=== PATIENT | female | born 2000 | race American Indian/Alaskan Native ===

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

== ENCOUNTER 2019-10-05 14:53 | Inpatient (IN) | payer MEDICAID, SELFPAY ==
[2019-10-05] MEDS ORDERED: Lactated Ringers 1,000 ML IV SCH ×2 (16:15→17:45)
[2019-10-05 17:01] LABS: ANION GAP 12.4 mEq/L (7-13); CHLORIDE,CL 103 mmol/L (98-107); SODIUM,NA 137 mmol/L (136-145)
[2019-10-05] MEDS: Lactated Ringers 1,000 ML IV SCH ×2 (17:13→23:41)
[2019-10-05] MEDS ORDERED: Sodium Chloride 0.9% 10 ML Syringe FLUSH PRN ×2 (17:41→17:45)
[2019-10-05] MEDS ORDERED: Simethicone 80 MG Tab.Chew PO PRN (17:45)
[2019-10-05] MEDS ORDERED: Benzocaine/Menthol 20%-0.5% Spray 56 GM Canister TOP PRN (17:45)
[2019-10-05] MEDS ORDERED: Zolpidem 5 MG Tab PO PRN (17:45)
[2019-10-05] MEDS ORDERED: Tranexamic Acid 1,000 MG in Sodium Chloride 0.9% 100 ML IV PRN (17:45)
[2019-10-05] MEDS ORDERED: Oxytocin/Normal Saline 30 UNIT/500 ML BAG IV SCH (17:45)
[2019-10-05] MEDS ORDERED: Misoprostol 400 MCG (4 X 100 MCG TAB) RECTAL PRN (17:45)
[2019-10-05] MEDS ORDERED: Carboprost Tromethamine 250 MCG/1 ML Amp IM PRN (17:45)
[2019-10-05] MEDS ORDERED: Oxytocin 10 Units/1 ML SDV IM PRN (17:45)
--- NOTE | 2019-10-05 19:24 | HP ---
CHIEF COMPLAINT: "I am having bleeding." HISTORY OF PRESENT ILLNESS: Ms. Adler is a 19-year-old 2, para 0-0-1- 0, female at 38-6/7 weeks' gestation by a 13-5/7 weeks' ultrasound. She states that today after having intercourse, she had bleeding, and she has some cramping. She denies any nausea, vomiting, or diarrhea. No fever or chills. No hematochezia, hematemesis, or hematuria. No dysuria, frequency, or urgency with urination. No leg pain, leg edema, severe back pain, or abdominal pain. She is having increased force and frequency of contrations. She also had history of Trichomonas earlier in the and bacterial vaginosis. No other cancer, hypertension, heart disease, seizure disorder, thromboembolic disease noted in her history. PAST MEDICAL HISTORY: She has history of asthma and hepatitis C, which she did not know about. She denies any hypertension, diabetes, thromboembolic disease, thyroid disease, kidney disease, lung or other health issues. She has never had a blood transfusion. History of depression, iron deficiency anemia, vitamin D deficiency. FAMILY HISTORY: Positive for diabetes, heart disease, and hypertension. No cancer, thyroid disease, or thromboembolic disease. SOCIAL HISTORY: She smokes half pack of cigarettes a day. She denies any alcohol use or illicit drug use, but she does have a positive drug screen for THC on 04/10/2019 and on methamphetamine today. MEDICATIONS: vitamins. ALLERGIES: No known drug allergies. PAST SURGICAL HISTORY: None. OBSTETRICAL HISTORY: One spontaneous AB. REVIEW OF SYSTEMS: All pertinent positive and negative review of systems per HPI. All other systems reviewed were negative. A 10-point review of systems discussed with the patient. She has no other issues than what is in the HPI. PHYSICAL EXAMINATION: Vital Signs: Blood pressure 132/76, pulse 76, respirations 18, temperature 98.5. HEENT: Unremarkable. Neck: Supple without adenopathy. No thyromegaly. Lungs: Clear to auscultation. No wheezing, rhonchi, or rales noted. Cardiovascular: Regular rate and rhythm without murmurs. Abdomen: Soft, gravid, nontender. Fundal height 38 cm. heart tones 130s to 140s, reactive strip. Contractions every 3 to 5 minutes apart. Back: No CVA tenderness. Genitourinary: External genitalia within normals. No erythema, lesions, or discharge noted. Vagina, no erythema or lesions noted. She does have slight blood noted in the vaginal vault, but no active bleeding from the cervix. Cervix is 2 to 3 cm dilated, 70% effaced, minus 2 station, mid position. GC- chlamydia and wet mount obtained. Group B strep vaginal culture obtained. RPR - NR, HBsag- Neg, Rubella- Equivocal, Blood type O Positive, Ab screen- Neg ASSESSMENT: 1. A 38-6/7 weeks' intrauterine . 2. Early labor. 3. Vaginal bleeding most likely from intercourse with a dilated cervix. 4. Tobacco abuser. 5. History of methamphetamine positive drug screen. 6. History of positive Trichomonas and bacterial vaginosis in the which were treated. 7. Minimal care. PLAN: 1. The patient will be kept and then after midnight, 39 weeks gestation we will start Pitocin augmentation. 2. All questions answered. 3. Risks, benefits, complications, and side effects of augmentation of labor discussed with the patient. She understands these. 4. CBC, CMP, protein-creatinine ratio, urinalysis pending. 5. Group B strep vaginal culture pending. [facility] /[id number] MTDD
[2019-10-06] MEDS ORDERED: Ondansetron 4 MG/2 ML SDV IVPUSH PRN (00:33)
[2019-10-06] MEDS ORDERED: cefTRIAXone 2 GM in Sodium Chloride 0.9% 100 ML IV ONE (00:36)
--- NOTE | 2019-10-06 00:50 | PCM.PNLD ---
Labor Progress Note - VS & Meds Vital Signs: Last Vital Signs Temp 98.9 F 10/05/19 23:33 Pulse 78 10/06/19 00:18 Resp 18 10/06/19 00:18 BP 135/74 10/06/19 00:18 Pulse Ox Active Medications: Current Medications Acetaminophen (Tylenol) 650 mg PO Q4H PRN PRN Reason: Pain/Fever Acetaminophen (Tylenol) 650 mg PO Q6H PRN PRN Reason: mild pain or fever Benzocaine/Menthol (Dermoplast Pain Relief [place]) 0 gm TOP Q4H PRN PRN Reason: Perineal comfort measures Carboprost Tromethamine (Hemabate Ds) 250 mcg IM ASDIRECTED PRN PRN Reason: Excessive vaginal bleeding Docusate Sodium (Colace) 100 mg PO BID PRN PRN Reason: Constipation Lactated Ringer's (Ringers, Lactated) 1,000 mls @ 999 mls/hr IV ASDIRECTED [facility] Last Admin: 10/05/19 16:37 Dose: 999 mls/hr Lactated Ringer's (Ringers, Lactated) 1,000 mls @ 125 mls/hr IV ASDIRECTED [facility] Last Admin: 10/05/19 23:41 Dose: 125 mls/hr Lactated Ringer's (Ringers, Lactated) 1,000 mls @ 125 drops/hr IV ASDIRECTED [facility] Oxytocin/Sodium Chloride (Pitocin In Ns 30 Unit/500 Ml) 30 unit in 500 mls @ 2 mls/hr IV TITRATE [facility]; Protocol Last Admin: 10/06/19 00:18 Dose: 2 munits/min, 2 mls/hr Tranexamic Acid 1,000 mg/ (Sodium Chloride) 110 mls @ 660 mls/hr IV ONETIME PRN PRN Reason: Bleeding Ceftriaxone Sodium 2 gm/ (Sodium Chloride) 100 mls @ 200 mls/hr IV ONETIME ONE Stop: 10/06/19 01:05 Ibuprofen (Motrin) 800 mg PO Q8H PRN PRN Reason: Mild Pain or Fever Misoprostol (Cytotec) 800 mcg RECTAL ONETIME PRN PRN Reason: Hemorrhage Ondansetron HCl (Zofran) 4 mg IVPUSH Q4H PRN PRN Reason: Nausea/Vomiting Oxytocin (Pitocin) 10 unit IM ONETIME PRN PRN Reason: Bleeding Prenat Multivit/Tate/Iron/Folic Ac ( Plus Iron) 1 each PO DAILY KARSON Simethicone (Simethicone) 80 mg PO Q4H PRN PRN Reason: Gas Sodium Chloride (Saline Flush) 10 ml FLUSH ASDIRECTED PRN PRN Reason: Keep Vein Open Sodium Chloride (Saline Flush) 10 ml FLUSH ASDIRECTED PRN PRN Reason: Keep Vein Open Witch Zahraa (Medi-Pads) 1 each TOP Q4HR PRN PRN Reason: Perineal Comfort Measure Zolpidem Tartrate (Ambien) 5 mg PO BEDTIME PRN PRN Reason: Insomnia Last Admin: 10/05/19 20:55 Dose: 5 mg - Uterine Contractions Uterine Monitoring Mode: External [place], Palpation Contraction Frequency (min): 4 Contraction Duration (sec): 65-110 Contraction Intensity: Mild Uterine Resting Tone: Soft - Monitoring Monitor Mode: External Ultrasound Heart Rate (FHR) Baseline: 130 Heart Rate (FHR) Variability: Moderate (6-25 bmp) Accelerations: Absent (occasional aceleration noted.) Decelerations: None Strip Review: Category I - Vaginal Exam Dilation (cm): 3 Effacement (Percent): 80 Station: -2 Cervical Position: Midposition Sterile Vaginal Exam Performed By: Artemio Pimentel Vaginal Exam Comment: AROM with vaginal exam Thin meconium stained fluid - Labor Progress (Free Text) Labor Progress: Patient having contractions that have spread apartto every 4-5 minutes. Elevated liver enzymes with protein/creatine ratio. Urine with + Nitrites, Protein 100 and + bacteria and blood. Will start Ceftriaxone IV 2 grams now. Urine culture pending. 3 cm/80%/-2 AROM, Thin meconium stained fluid. Pitocin IV 2 mu/little traverse start then increase by 2 mu/min every 30 minutes. May have Nitrox/Intrathecal as needed.
[2019-10-06] MEDS ORDERED: fentaNYL 100 MCG/2 ML SDV ONE ×2 (02:13→06:12)
[2019-10-06] MEDS ORDERED: Sodium Bicarbonate 4.2% 2.5 MEQ/5 ML SDV ONE ×2 (02:13→06:12)
[2019-10-06] MEDS ORDERED: EPINEPHrine 1 MG/1 ML Amp ONE (02:13)
[2019-10-06] MEDS: Lactated Ringers 1,000 ML IV SCH ×2 (02:32→06:43)
--- NOTE | 2019-10-06 02:41 | PCM.SN ---
- Free Text/Narrative Note: Intrathecal. Sitting position, sterile prep and drape, 1% lidocaine with bicarb for skinwheal to L2 L3 interspace, introducer, 24 ga pencan x 1. Pos CSF neg heme neg parasthesia, 0.1 ml PF 1;1000 epi, 0.4 ml pf NS, 15 mcg pf sufenta, 35 mcg pf fentanyl, and 6 mg of 0.75% pf marcaine injected after CSF aspiration. Pt to L lateral position. Procedure time 0210 to 0240
--- NOTE | 2019-10-06 06:29 | PCM.SN ---
- Free Text/Narrative Note: Intrathecal. Sitting position, sterile prep and drape, 1% lidocaine with bicarb for skinwheal to L2 L3 interspace, introducer, 24 ga pencan x 1. Pos CSF neg heme neg parasthesia, 0.4 ml pf NS, 15 mcg pf sufenta, 35 mcg pf fentanyl, and 6 mg of 0.75% pf marcaine injected after CSF aspiration. Pt to L lateral position. Procedure time 0610 to 0640
--- NOTE | 2019-10-06 07:48 | PCM.DEL ---
L & D Note - General Info Date of Service: 10/06/19 (39 week IUP) Mother's Due Date: 10/13/19 - Delivery Note Labor: Augmented by ARM, Augmented by Oxytocin Delivery Outcome: Livebirth Delivery Method: Spontaneous Vaginal Delivery-Single Delivery Mode: Spontaneous Presentation: Left Occiput Anterior (RUFUS) Nuchal Cord: Present (Tight nuchal cord X1.), Reduced Anesthesia Type: Intrathecal Amniotic Fluid Description: Meconium Stained Episiotomy Type: Midline Laceration: None Suture type: Vicryl Suture size: 2-0 Placenta: Intact, Spontaneous Cord: 3 Vessels Estimated Blood Loss: 400 Resuscitation Needed: No [place]: Suctioned, Bulb Syringe, Stimulated, Warmed, [place] Used Provider: Artemio Pimentel Score 1 min: 7 Score 5 min: 9 Second Stage Interventions: Reports: Second Nurse Assessed Progress of Descent, Second Nurse Reviewed Contraction Pattern, Second Nurse Reviewed Heart Tones, Encouragement Given, Pushing Effectively, Pushing, Pulls Own Legs Back Delivery Comments (Free Text/Narrative):: , RUFUS, Viable male infant over a midline episiotomy Cord 3 vessel tightly around neck X 1. Placenta delivered by simple expression intact. Labia, Vagina and cervix inspected an intact. Mother and in good condition. Viable male weight- 7 lbs 10 oz Length- 19 3/4 inches. 's- 7 at 1 minute and 9 at 5 minutes. Induction Criteria - Induction Gestational Age >/= 39 wks: Yes Estimated Pelvis: Reports: Adequate Reassuring Monitoring Strip: Yes Absence of Tachy Systole: Yes - Augmentation Estimated Pelvis: Reports: Adequate Weight Estimated:: Reports: AGA Reassuring Monitoring Strip: Yes Absence of Tachy Systole: Yes - General Info Date of Service: 10/06/19 Functional Status: Reports: Pain Controlled, Tolerating Diet, Ambulating - Review of Systems General: Reports: No Symptoms HEENT: Reports: No Symptoms Pulmonary: Reports: No Symptoms Cardiovascular: Reports: No Symptoms Gastrointestinal: Reports: No Symptoms Genitourinary: Reports: No Symptoms Musculoskeletal: Reports: No Symptoms Skin: Reports: No Symptoms Neurological: Reports: No Symptoms Psychiatric: Reports: No Symptoms - Patient Data Vitals - Most Recent: Last Vital Signs Temp 98.9 F 10/06/19 04:00 Pulse 61 10/06/19 04:45 Resp 18 10/06/19 04:45 BP 117/70 10/06/19 04:45 Pulse Ox 97 10/06/19 02:39 Weight - Most Recent: 176 lb I&O - Last 24 Hours: Intake & Output 10/05/19 10/06/19 10/06/19 22:59 06:59 14:59 Intake Total 3100 Balance 3100 Lab Results Last 24 Hours: Laboratory Results - last 24 hr 10/05/19 10/05/19 10/05/19 Range/Units 15:05 15:05 15:05 WBC (5.0-10.0) 10^3/uL RBC (4.2-5.4) 10^6/uL Hgb (12.0-16.0) g/dL Hct (37.0-47.0) % MCV (80-100) fL MCH (27.0-34.0) pg MCHC (33.0-35.0) g/dL Plt Count (150-450) 10^3/uL Sodium (136-145) mmol/L Potassium (3.5-5.1) mmol/L Chloride (98-107) mmol/L Carbon Dioxide (21-32) mmol/L Anion Gap (7-13) mEq/L BUN (7-18) mg/dL Creatinine (0.55-1.02) mg/dL Est Cr Clr Drug Dosing mL/min Estimated GFR (MDRD) BUN/Creatinine Ratio (No establ ref range) Glucose (74-99) mg/dL Uric Acid (2.6-6.0) mg/dL Calcium (8.5-10.1) mg/dL Total Bilirubin (0.2-1.0) mg/dL AST (15-37) U/L ALT (14-59) U/L Alkaline Phosphatase (46-116) U/L Lactate Dehydrogenase (81-234) U/L Total Protein (6.4-8.2) g/dL Albumin (3.4-5.0) g/dL Globulin Albumin/Globulin Ratio Urine Color Alethea (YELLOW) Urine Appearance Cloudy (CLEAR) Urine pH 6.0 (5.0-9.0) Ur Specific [place] 1.020 (1.005-1.030) Urine Protein 100 H (NEGATIVE) Urine Glucose (UA) 100 H (NEGATIVE) Urine Ketones 15 H (NEGATIVE) Urine Occult Blood Large H (NEGATIVE) Urine Nitrite Positive H (NEGATIVE) Urine Bilirubin Large H (NEGATIVE) Urine Urobilinogen >=8.0 H (0.2-1.0) mg/dL Ur Leukocyte Esterase Negative (NEGATIVE) Urine RBC >100 H /HPF Urine WBC 0-5 (0-5/HPF) /HPF Ur Epithelial Cells Few (NOT SEEN) /HPF Amorphous Sediment Few (NOT SEEN) /HPF Urine Bacteria Few (0-FEW/HPF) /HPF Urine Mucus Few H (NOT SEEN) /LPF Ur Random Creatinine 436.69 (No establ ref range) mg/dL U Random Total Protein 169.6 H (0.0-11.9) mg/dL Protein/Creatinin Ratio 0.38 Urine Opiates Screen Negative (NEGATIVE) Ur Oxycodone Screen Negative (NEGATIVE) Urine Methadone Screen Negative (NEGATIVE) Ur Barbiturates Screen Negative (NEGATIVE) U Tricyclic Antidepress Negative (NEGATIVE) Ur Phencyclidine Scrn Negative (NEGATIVE) Ur Amphetamine Screen Positive H (NEGATIVE) U Methamphetamines Scrn Positive H (NEGATIVE) Urine MDMA Screen Negative (NEGATIVE) U Benzodiazepines Scrn Negative (NEGATIVE) Urine Cocaine Screen Negative (NEGATIVE) U Marijuana (THC) Screen Negative (NEGATIVE) Blood Type Gel Antibody Screen 10/05/19 10/05/19 10/05/19 Range/Units 16:34 16:34 16:34 WBC 6.5 (5.0-10.0) 10^3/uL RBC 4.53 (4.2-5.4) 10^6/uL Hgb 12.1 (12.0-16.0) g/dL Hct 36.6 L (37.0-47.0) % MCV 80.8 D (80-100) fL MCH 26.7 L (27.0-34.0) pg MCHC 33.1 (33.0-35.0) g/dL Plt Count 162 D (150-450) 10^3/uL Sodium 137 (136-145) mmol/L Potassium 4.4 (3.5-5.1) mmol/L Chloride 103 (98-107) mmol/L Carbon Dioxide 26 (21-32) mmol/L Anion Gap 12.4 (7-13) mEq/L BUN 12 (7-18) mg/dL Creatinine 0.80 (0.55-1.02) mg/dL Est Cr Clr Drug Dosing 84.65 mL/min Estimated GFR (MDRD) > 60 BUN/Creatinine Ratio 15.0 (No establ ref range) Glucose 85 (74-99) mg/dL Uric Acid 7.6 H (2.6-6.0) mg/dL Calcium 8.3 L (8.5-10.1) mg/dL Total Bilirubin 0.9 (0.2-1.0) mg/dL AST 117 H (15-37) U/L ALT 183 H (14-59) U/L Alkaline Phosphatase 236 H (46-116) U/L Lactate Dehydrogenase 132 (81-234) U/L Total Protein 6.7 (6.4-8.2) g/dL Albumin 2.3 L (3.4-5.0) g/dL Globulin 4.4 Albumin/Globulin Ratio 0.52 Urine Color (YELLOW) Urine Appearance (CLEAR) Urine pH (5.0-9.0) Ur Specific [place] (1.005-1.030) Urine Protein (NEGATIVE) Urine Glucose (UA) (NEGATIVE) Urine Ketones (NEGATIVE) Urine Occult Blood (NEGATIVE) Urine Nitrite (NEGATIVE) Urine Bilirubin (NEGATIVE) Urine Urobilinogen (0.2-1.0) mg/dL Ur Leukocyte Esterase (NEGATIVE) Urine RBC /HPF Urine WBC (0-5/HPF) /HPF Ur Epithelial Cells (NOT SEEN) /HPF Amorphous Sediment (NOT SEEN) /HPF Urine Bacteria (0-FEW/HPF) /HPF Urine Mucus (NOT SEEN) /LPF Ur Random Creatinine (No establ ref range) mg/dL U Random Total Protein (0.0-11.9) mg/dL Protein/Creatinin Ratio Urine Opiates Screen (NEGATIVE) Ur Oxycodone Screen (NEGATIVE) Urine Methadone Screen (NEGATIVE) Ur Barbiturates Screen (NEGATIVE) U Tricyclic Antidepress (NEGATIVE) Ur Phencyclidine Scrn (NEGATIVE) Ur Amphetamine Screen (NEGATIVE) U Methamphetamines Scrn (NEGATIVE) Urine MDMA Screen (NEGATIVE) U Benzodiazepines Scrn (NEGATIVE) Urine Cocaine Screen (NEGATIVE) U Marijuana (THC) Screen (NEGATIVE) Blood Type O POSITIVE Gel Antibody Screen Negative Gildardo Results Last 24 Hours: Microbiology 10/05/19 17:28 Wet Prep - Final Vagina Med Orders - Current: Current Medications Acetaminophen (Tylenol) 650 mg PO Q4H PRN PRN Reason: Pain/Fever Acetaminophen (Tylenol) 650 mg PO Q6H PRN PRN Reason: mild pain or fever Benzocaine/Menthol (Dermoplast Pain Relief [place]) 0 gm TOP Q4H PRN PRN Reason: Perineal comfort measures Carboprost Tromethamine (Hemabate Ds) 250 mcg IM ASDIRECTED PRN PRN Reason: Excessive vaginal bleeding Docusate Sodium (Colace) 100 mg PO BID PRN PRN Reason: Constipation Lactated Ringer's (Ringers, Lactated) 1,000 mls @ 999 mls/hr IV ASDIRECTED KARSON Last Admin: 10/05/19 16:37 Dose: 999 mls/hr Lactated Ringer's (Ringers, Lactated) 1,000 mls @ 125 mls/hr IV ASDIRECTED KARSON Last Admin: 10/06/19 06:43 Dose: 125 mls/hr Lactated Ringer's (Ringers, Lactated) 1,000 mls @ 125 drops/hr IV ASDIRECTED [facility] Oxytocin/Sodium Chloride (Pitocin In Ns 30 Unit/500 Ml) 30 unit in 500 mls @ 2 mls/hr IV TITRATE [facility]; Protocol Last Titration: 10/06/19 06:32 Dose: 0 munits/min, 0 mls/hr Tranexamic Acid 1,000 mg/ (Sodium Chloride) 110 mls @ 660 mls/hr IV ONETIME PRN PRN Reason: Bleeding Ibuprofen (Motrin) 800 mg PO Q8H PRN PRN Reason: Mild Pain or Fever Misoprostol (Cytotec) 800 mcg RECTAL ONETIME PRN PRN Reason: Hemorrhage Ondansetron HCl (Zofran) 4 mg IVPUSH Q4H PRN PRN Reason: Nausea/Vomiting Last Admin: 10/06/19 02:06 Dose: 4 mg Oxytocin (Pitocin) 10 unit IM ONETIME PRN PRN Reason: Bleeding Prenat Multivit/[place]/Iron/Folic Ac ( Plus Iron) 1 each PO DAILY [facility] Simethicone (Simethicone) 80 mg PO Q4H PRN PRN Reason: Gas Sodium Chloride (Saline Flush) 10 ml FLUSH ASDIRECTED PRN PRN Reason: Keep Vein Open Sodium Chloride (Saline Flush) 10 ml FLUSH ASDIRECTED PRN PRN Reason: Keep Vein Open Witherminia Cherryel (Medi-Pads) 1 each TOP Q4HR PRN PRN Reason: Perineal Comfort Measure Zolpidem Tartrate (Ambien) 5 mg PO BEDTIME PRN PRN Reason: Insomnia Last Admin: 10/05/19 20:55 Dose: 5 mg Discontinued Medications Epinephrine HCl (Adrenalin) Confirm Administered Dose 1 mg .ROUTE .STK-MED ONE Stop: 10/06/19 02:14 Last Admin: 10/06/19 05:48 Dose: Not Given Fentanyl (Sublimaze) Confirm Administered Dose 100 mcg .ROUTE .STK-MED ONE Stop: 10/06/19 02:14 Last Admin: 10/06/19 05:49 Dose: Not Given Fentanyl (Sublimaze) Confirm Administered Dose 100 mcg .ROUTE .STK-MED ONE Stop: 10/06/19 06:13 Ceftriaxone Sodium 2 gm/ (Sodium Chloride) 100 mls @ 200 mls/hr IV ONETIME ONE Stop: 10/06/19 01:05 Last Admin: 10/06/19 01:11 Dose: 200 mls/hr Sodium Bicarbonate (Sodium Bicarbonate 4.2%) Confirm Administered Dose 2.5 meq .ROUTE .STK-MED ONE Stop: 10/06/19 02:14 Last Admin: 10/06/19 05:48 Dose: Not Given Sodium Bicarbonate (Sodium Bicarbonate 4.2%) Confirm Administered Dose 2.5 meq .ROUTE .STK-MED ONE Stop: 10/06/19 06:13 Sufentanil Citrate (Sufenta) Confirm Administered Dose 50 mcg .ROUTE .STK-MED ONE Stop: 10/06/19 02:14 Last Admin: 10/06/19 05:49 Dose: Not Given Sufentanil Citrate (Sufenta) Confirm Administered Dose 50 mcg .ROUTE .STK-MED ONE Stop: 10/06/19 06:13 - Exam General: Alert, Oriented, Cooperative, No Acute Distress HEENT: Pupils Equal, Pupils Reactive Neck: Supple Lungs: Clear to Auscultation, Normal Respiratory Effort Cardiovascular: Regular Rate, Regular Rhythm, No Murmurs GI/Abdominal Exam: Normal Bowel Sounds, Non-Tender (Female) Exam: Normal External Exam, Normal Speculum Exam Back Exam: Normal Inspection, Full Range of Motion Extremities: Normal Inspection, Normal Range of Motion, Non-Tender, No Pedal Edema, Normal Capillary Refill Skin: Dry, Intact Neurological: No New Focal Deficit, Normal Gait, Normal Speech Psy/Mental Status: Alert, Normal Affect, Normal Mood - Problem List Review Problem List Initiated/Reviewed/Updated: Yes - My Orders Last 24 Hours: My Active Orders 10/05/19 15:05 CULTURE URINE [RM] Routine 10/05/19 15:15 OB Check [OM.PC] Click To Edit 10/05/19 16:15 Lactated Ringers [Ringers, Lactated] 1,000 ml IV ASDIRECTED Lactated Ringers [Ringers, Lactated] 1,000 ml IV ASDIRECTED 10/05/19 16:30 CULTURE GROUP B STREP [RM] Routine 10/05/19 17:28 CHLAMYDIA AND GONORRHEA BY TMA Routine 10/05/19 17:41 Patient Status [ADT] Routine Notify Provider Vital Signs OB [RC] ASDIRECTED Notify Provider [RC] PRN Notify Provider [RC] STAT Vital Signs [RC] PER UNIT ROUTINE Acetaminophen [Tylenol] 650 mg PO Q4H PRN Sodium Chloride 0.9% [Saline Flush] 10 ml FLUSH ASDIRECTED PRN Peripheral IV Insertion Adult [OM.PC] Urgent 10/05/19 17:43 Peripheral IV Care [RC] 06,14,10/05/19 17:45 Up ad Kiki [RC] ASDIRECTED Acetaminophen [Tylenol] 650 mg PO Q6H PRN Benzocaine/Menthol [Dermoplast Pain Relief [place]] See Dose Instructions TOP Q4H PRN Carboprost Tromethamine [Hemabate DS] 250 mcg IM ASDIRECTED PRN Docusate Sodium [Colace] 100 mg PO BID PRN Ibuprofen [Motrin] 800 mg PO Q8H PRN Lactated Ringers [Ringers, Lactated] 1,000 ml IV ASDIRECTED Oxytocin [Pitocin] 10 unit IM ONETIME PRN Oxytocin/Normal Saline [Pitocin in NS 30 UNIT/500 ML] 30 unit in 500 ml IV TITRATE Simethicone 80 mg PO Q4H PRN Sodium Chloride 0.9% [Saline Flush] 10 ml FLUSH ASDIRECTED PRN Tranexamic Acid [Cyklokapron] 1,000 mg Sodium Chloride 0.9% [Normal Saline] 100 ml IV ONETIME Zolpidem [Ambien] 5 mg PO BEDTIME PRN miSOPROStoL [Cytotec] 800 mcg RECTAL ONETIME PRN witch Zahraa [Medi-Pads] 1 each TOP Q4HR PRN Assess Lochia [WOMSER] Per Unit Routine Assess Uterine Involution [WOMSER] Per Unit Routine Breast Pump [WOMSER] Per Unit Routine Ice Therapy [OM.PC] Per Unit Routine Perineal Care [OM.PC] Per Unit Routine Saline Lock Insert [OM.PC] Urgent Sitz Bath [OM.PC] Per Unit Routine Resuscitation Status Routine 10/05/19 Breakfast Regular Diet [DIET] 10/05/19 Dinner Regular Diet [DIET] Regular Diet [DIET] 10/05/19 Lunch Regular Diet [DIET] 10/06/19 00:33 Ondansetron [Zofran] 4 mg IVPUSH Q4H PRN 10/06/19 01:18 OB Discontinue Nitrous Oxide [RC] ASDIRECTED 10/06/19 04:55 DC Chua Catheter [Urinary Catheter Removal] [RC] Per Unit Routine 10/06/19 05:00 Insert Urinary Catheter [OM.PC] Q24H 10/06/19 09:00 Vit with Ca/FA/Iron [ Plus Iron] 1 each PO DAILY 10/07/19 06:00 CBC W/O DIFF,HEMOGRAM [HEME] Routine
[2019-10-06] MEDS ORDERED: Measles, Mumps & Rubella Vaccine 0.5 ML SDV SUBCUT ONE (07:49)
[2019-10-06] MEDS: Docusate Sodium 100 MG Cap PO PRN ×2 (12:45→21:15)
[2019-10-06] MEDS: Ibuprofen 800 MG Tab PO PRN ×2 (12:45→21:15)
[2019-10-06] MEDS: Acetaminophen 325 MG Tab PO PRN ×3 (12:45→21:16)
[2019-10-06] MEDS ORDERED: fentaNYL 100 MCG/2 ML SDV ITHECAL ONE ×2 (15:37)
[2019-10-06] MEDS ORDERED: Sodium Chloride 0.9% 10 ML Syringe IV ONE ×2 (15:37)
[2019-10-06] MEDS ORDERED: Bupivacaine 0.75%/D5W 2 ML Amp ISPINAL ONE ×2 (15:37)
[2019-10-06] MEDS ORDERED: EPINEPHrine 1 MG/1 ML Amp IV ONE (15:37)
[2019-10-06] MEDS ORDERED: Sodium Bicarbonate 4.2% 2.5 MEQ/5 ML SDV IV ONE ×2 (15:37)
[2019-10-06] MEDS: Prenatal Multivitamin with Calcium/Folic Acid/Iron Tab PO SCH (16:59)
[2019-10-07] MEDS: Docusate Sodium 100 MG Cap PO PRN ×2 (08:43→20:26)
[2019-10-07] MEDS: Prenatal Multivitamin with Calcium/Folic Acid/Iron Tab PO SCH (08:43)
[2019-10-07] MEDS: Acetaminophen 325 MG Tab PO PRN ×2 (08:43→20:26)
[2019-10-07] MEDS: Ibuprofen 800 MG Tab PO PRN ×2 (08:43→20:28)
--- NOTE | 2019-10-07 10:11 | PCM.PNPP ---
- General Info Date of Service: 10/07/19 (PPD#1 S/P ) Functional Status: Reports: Pain Controlled, Tolerating Diet, Ambulating, Urinating - Review of Systems General: Reports: No Symptoms HEENT: Reports: No Symptoms Pulmonary: Reports: No Symptoms Cardiovascular: Reports: No Symptoms Gastrointestinal: Reports: No Symptoms Genitourinary: Reports: No Symptoms Musculoskeletal: Reports: No Symptoms Skin: Reports: No Symptoms Neurological: Reports: No Symptoms Psychiatric: Reports: No Symptoms - General Info Date of Service: 10/07/19 (PPD #1 S/P ) - Patient Data Vital Signs - Most Recent: Last Vital Signs Temp 98.4 F 10/07/19 09:38 Pulse 66 10/07/19 09:38 Resp 16 10/07/19 09:38 BP 104/73 10/07/19 09:38 Pulse Ox 100 10/07/19 09:38 Weight - Most Recent: 176 lb Lab Results - Last 24 Hours: Laboratory Results - last 24 hr 10/07/19 Range/Units 06:10 WBC 9.5 (5.0-10.0) 10^3/uL RBC 3.49 L (4.2-5.4) 10^6/uL Hgb 9.4 L D (12.0-16.0) g/dL Hct 28.7 L (37.0-47.0) % MCV 82.2 (80-100) fL MCH 26.9 L (27.0-34.0) pg MCHC 32.8 L (33.0-35.0) g/dL Plt Count 123 L (150-450) 10^3/uL Micro Results - Last 24 Hours: Microbiology 10/05/19 16:30 Group B Streptococcus Culture - Preliminary Vaginal/Rectal Med Orders - Current: Current Medications Acetaminophen (Tylenol) 650 mg PO Q4H PRN PRN Reason: Pain/Fever Last Admin: 10/07/19 08:43 Dose: 650 mg Acetaminophen (Tylenol) 650 mg PO Q6H PRN PRN Reason: mild pain or fever Last Admin: 10/06/19 12:45 Dose: 650 mg Benzocaine/Menthol (Dermoplast Pain Relief [place]) 0 gm TOP Q4H PRN PRN Reason: Perineal comfort measures Last Admin: 10/06/19 12:46 Dose: 1 spray Carboprost Tromethamine (Hemabate Ds) 250 mcg IM ASDIRECTED PRN PRN Reason: Excessive vaginal bleeding Docusate Sodium (Colace) 100 mg PO BID PRN PRN Reason: Constipation Last Admin: 10/07/19 08:43 Dose: 100 mg Ferrous Sulfate (Ferrous Sulfate) 325 mg PO TIDMEALS KARSON Lactated Ringer's (Ringers, Lactated) 1,000 mls @ 999 mls/hr IV ASDIRECTED KARSON Last Admin: 10/05/19 16:37 Dose: 999 mls/hr Lactated Ringer's (Ringers, Lactated) 1,000 mls @ 125 mls/hr IV ASDIRECTED KARSON Last Admin: 10/06/19 06:43 Dose: 125 mls/hr Lactated Ringer's (Ringers, Lactated) 1,000 mls @ 125 drops/hr IV ASDIRECTED KARSON Oxytocin/Sodium Chloride (Pitocin In Ns 30 Unit/500 Ml) 30 unit in 500 mls @ 2 mls/hr IV TITRATE [facility]; Protocol Last Titration: 10/06/19 10:53 Dose: 0 mls/hr Tranexamic Acid 1,000 mg/ (Sodium Chloride) 110 mls @ 660 mls/hr IV ONETIME PRN PRN Reason: Bleeding Ibuprofen (Motrin) 800 mg PO Q8H PRN PRN Reason: Mild Pain or Fever Last Admin: 10/07/19 08:43 Dose: 800 mg Misoprostol (Cytotec) 800 mcg RECTAL ONETIME PRN PRN Reason: Hemorrhage Ondansetron HCl (Zofran) 4 mg IVPUSH Q4H PRN PRN Reason: Nausea/Vomiting Last Admin: 10/06/19 02:06 Dose: 4 mg Oxytocin (Pitocin) 10 unit IM ONETIME PRN PRN Reason: Bleeding Prenat Multivit/[employer]/Iron/Folic Ac ( Plus Iron) 1 each PO DAILY KARSON Last Admin: 10/07/19 08:43 Dose: 1 each Simethicone (Simethicone) 80 mg PO Q4H PRN PRN Reason: Gas Sodium Chloride (Saline Flush) 10 ml FLUSH ASDIRECTED PRN PRN Reason: Keep Vein Open Sodium Chloride (Saline Flush) 10 ml FLUSH ASDIRECTED PRN PRN Reason: Keep Vein Open Witch Zahraa (Medi-Pads) 1 each TOP Q4HR PRN PRN Reason: Perineal Comfort Measure Zolpidem Tartrate (Ambien) 5 mg PO BEDTIME PRN PRN Reason: Insomnia Last Admin: 10/05/19 20:55 Dose: 5 mg Discontinued Medications Epinephrine HCl (Adrenalin) Confirm Administered Dose 1 mg .ROUTE .STK-MED ONE Stop: 10/06/19 02:14 Last Admin: 10/06/19 05:48 Dose: Not Given Fentanyl (Sublimaze) Confirm Administered Dose 100 mcg .ROUTE .STK-MED ONE Stop: 10/06/19 02:14 Last Admin: 10/06/19 05:49 Dose: Not Given Fentanyl (Sublimaze) Confirm Administered Dose 100 mcg .ROUTE .STK-MED ONE Stop: 10/06/19 06:13 Last Admin: 10/06/19 08:37 Dose: Not Given Ceftriaxone Sodium 2 gm/ (Sodium Chloride) 100 mls @ 200 mls/hr IV ONETIME ONE Stop: 10/06/19 01:05 Last Admin: 10/06/19 01:11 Dose: 200 mls/hr Measles/Mumps/Rubella Vaccine Live (M-M-R Ii Vaccine) 0.5 ml SUBCUT .ONCE ONE Stop: 10/06/19 07:50 Last Admin: 10/06/19 16:59 Dose: 0.5 ml Sodium Bicarbonate (Sodium Bicarbonate 4.2%) Confirm Administered Dose 2.5 meq .ROUTE .STK-MED ONE Stop: 10/06/19 02:14 Last Admin: 10/06/19 05:48 Dose: Not Given Sodium Bicarbonate (Sodium Bicarbonate 4.2%) Confirm Administered Dose 2.5 meq .ROUTE .STK-MED ONE Stop: 10/06/19 06:13 Last Admin: 10/06/19 08:36 Dose: Not Given Sufentanil Citrate (Sufenta) Confirm Administered Dose 50 mcg .ROUTE .STK-MED ONE Stop: 10/06/19 02:14 Last Admin: 10/06/19 05:49 Dose: Not Given Sufentanil Citrate (Sufenta) Confirm Administered Dose 50 mcg .ROUTE .STK-MED ONE Stop: 10/06/19 06:13 Last Admin: 10/06/19 08:37 Dose: Not Given - Interaction Disposition, : [place] in Room with Family Infant Interaction: Holding Feeding: Bottle Fed Infant Support Person: Significant Other - Recovery Exam Fundal Tone: Firm Fundal Level: 1 Fingerbreadths Below Umbilicus Fundal Placement: Midline Lochia Amount: Small Lochia Color: Rubra/Red Perineum Description: Intact, Minimal Bruising/Swelling Episiotomy/Laceration: Approximated Bladder Status: Voiding - Exam General: Alert, Oriented, Cooperative, No Acute Distress HEENT: Pupils Equal, Pupils Reactive, EOMI, Mucous Membr. Moist/[place] Neck: Supple Lungs: Clear to Auscultation, Normal Respiratory Effort Cardiovascular: Regular Rate, Regular Rhythm, No Murmurs GI/Abdominal Exam: Normal Bowel Sounds, Soft, Non-Tender, No Organomegaly, No Distention Extremities: Normal Inspection, Normal Range of Motion, Non-Tender, No Pedal Edema Skin: Warm, Dry, Intact Wound/Incisions: Healing Well Neurological: No New Focal Deficit Psy/Mental Status: Alert, Normal Affect, Normal Mood - Problem List Review Problem List Initiated/Reviewed/Updated: Yes - My Orders Last 24 Hours: My Active Orders 10/07/19 12:00 Ferrous Sulfate 325 mg PO TIDMEALS - Assessment Assessment:: PPD # 1 S/P Doing well. + Group B strep vaginal culture U/A- Culture pending + Methamphetamine/Amphetamine in drug screen Acute Anemia secondary to blood loss. - Plan Plan:: studio set up worker to be involved with discharge planning. Discharge planning for tomorrow. Follow-up with Brooke Burton at 6 week check up Will treat for UTI as soon as culture returns. Increase fluids. All questions answered. FeSO4 1 tablet three times a day.
[2019-10-07] MEDS: Ferrous Sulfate 325 MG Tab PO SCH ×2 (13:05→18:24)
--- NOTE | 2019-10-08 03:13 | PCM.PNPP ---
- General Info Date of Service: 10/08/19 (PPD # 2 S/ P ) Functional Status: Reports: Pain Controlled, Tolerating Diet, Ambulating, Urinating - Review of Systems General: Reports: No Symptoms HEENT: Reports: No Symptoms Pulmonary: Reports: No Symptoms Cardiovascular: Reports: No Symptoms Gastrointestinal: Reports: No Symptoms Genitourinary: Reports: No Symptoms Musculoskeletal: Reports: No Symptoms Skin: Reports: No Symptoms Neurological: Reports: No Symptoms Psychiatric: Reports: No Symptoms - General Info Date of Service: 10/08/19 (PPD # 1 S/P ) - Patient Data Vital Signs - Most Recent: Last Vital Signs Temp 98.4 F 10/07/19 09:38 Pulse 66 10/07/19 09:38 Resp 16 10/07/19 09:38 BP 104/73 10/07/19 09:38 Pulse Ox 100 10/07/19 09:38 Weight - Most Recent: 176 lb Lab Results - Last 24 Hours: Laboratory Results - last 24 hr 10/07/19 Range/Units 06:10 WBC 9.5 (5.0-10.0) 10^3/uL RBC 3.49 L (4.2-5.4) 10^6/uL Hgb 9.4 L D (12.0-16.0) g/dL Hct 28.7 L (37.0-47.0) % MCV 82.2 (80-100) fL MCH 26.9 L (27.0-34.0) pg MCHC 32.8 L (33.0-35.0) g/dL Plt Count 123 L (150-450) 10^3/uL Micro Results - Last 24 Hours: Microbiology 10/05/19 15:05 Urine Culture - Preliminary Urine, Voided 10/05/19 16:30 Group B Streptococcus Culture - Preliminary Vaginal/Rectal Med Orders - Current: Current Medications Acetaminophen (Tylenol) 650 mg PO Q4H PRN PRN Reason: Pain/Fever Last Admin: 10/07/19 08:43 Dose: 650 mg Acetaminophen (Tylenol) 650 mg PO Q6H PRN PRN Reason: mild pain or fever Last Admin: 10/07/19 20:26 Dose: 650 mg Benzocaine/Menthol (Dermoplast Pain Relief Mason) 0 gm TOP Q4H PRN PRN Reason: Perineal comfort measures Last Admin: 10/06/19 12:46 Dose: 1 spray Carboprost Tromethamine (Hemabate Ds) 250 mcg IM ASDIRECTED PRN PRN Reason: Excessive vaginal bleeding Docusate Sodium (Colace) 100 mg PO BID PRN PRN Reason: Constipation Last Admin: 10/07/19 20:26 Dose: 100 mg Ferrous Sulfate (Ferrous Sulfate) 325 mg PO TIDMEALS [facility] Last Admin: 10/07/19 18:24 Dose: 325 mg Lactated Ringer's (Ringers, Lactated) 1,000 mls @ 999 mls/hr IV ASDIRECTED [facility] Last Admin: 10/05/19 16:37 Dose: 999 mls/hr Lactated Ringer's (Ringers, Lactated) 1,000 mls @ 125 mls/hr IV ASDIRECTED [facility] Last Admin: 10/06/19 06:43 Dose: 125 mls/hr Lactated Ringer's (Ringers, Lactated) 1,000 mls @ 125 drops/hr IV ASDIRECTED [facility] Oxytocin/Sodium Chloride (Pitocin In Ns 30 Unit/500 Ml) 30 unit in 500 mls @ 2 mls/hr IV TITRATE [facility]; Protocol Last Titration: 10/06/19 10:53 Dose: 0 mls/hr Tranexamic Acid 1,000 mg/ (Sodium Chloride) 110 mls @ 660 mls/hr IV ONETIME PRN PRN Reason: Bleeding Ibuprofen (Motrin) 800 mg PO Q8H PRN PRN Reason: Mild Pain or Fever Last Admin: 10/07/19 20:28 Dose: 800 mg Misoprostol (Cytotec) 800 mcg RECTAL ONETIME PRN PRN Reason: Hemorrhage Ondansetron HCl (Zofran) 4 mg IVPUSH Q4H PRN PRN Reason: Nausea/Vomiting Last Admin: 10/06/19 02:06 Dose: 4 mg Oxytocin (Pitocin) 10 unit IM ONETIME PRN PRN Reason: Bleeding Prenat Multivit/Electronic Tester/Iron/Folic Ac ( Plus Iron) 1 each PO DAILY [facility] Last Admin: 10/07/19 08:43 Dose: 1 each Simethicone (Simethicone) 80 mg PO Q4H PRN PRN Reason: Gas Sodium Chloride (Saline Flush) 10 ml FLUSH ASDIRECTED PRN PRN Reason: Keep Vein Open Sodium Chloride (Saline Flush) 10 ml FLUSH ASDIRECTED PRN PRN Reason: Keep Vein Open Witch Zahraa (Medi-Pads) 1 each TOP Q4HR PRN PRN Reason: Perineal Comfort Measure Zolpidem Tartrate (Ambien) 5 mg PO BEDTIME PRN PRN Reason: Insomnia Last Admin: 10/05/19 20:55 Dose: 5 mg Discontinued Medications Epinephrine HCl (Adrenalin) Confirm Administered Dose 1 mg .ROUTE .STK-MED ONE Stop: 10/06/19 02:14 Last Admin: 10/06/19 05:48 Dose: Not Given Fentanyl (Sublimaze) Confirm Administered Dose 100 mcg .ROUTE .STK-MED ONE Stop: 10/06/19 02:14 Last Admin: 10/06/19 05:49 Dose: Not Given Fentanyl (Sublimaze) Confirm Administered Dose 100 mcg .ROUTE .STK-MED ONE Stop: 10/06/19 06:13 Last Admin: 10/06/19 08:37 Dose: Not Given Ceftriaxone Sodium 2 gm/ (Sodium Chloride) 100 mls @ 200 mls/hr IV ONETIME ONE Stop: 10/06/19 01:05 Last Admin: 10/06/19 01:11 Dose: 200 mls/hr Measles/Mumps/Rubella Vaccine Live (M-M-R Ii Vaccine) 0.5 ml SUBCUT .ONCE ONE Stop: 10/06/19 07:50 Last Admin: 10/06/19 16:59 Dose: 0.5 ml Sodium Bicarbonate (Sodium Bicarbonate 4.2%) Confirm Administered Dose 2.5 meq .ROUTE .STK-MED ONE Stop: 10/06/19 02:14 Last Admin: 10/06/19 05:48 Dose: Not Given Sodium Bicarbonate (Sodium Bicarbonate 4.2%) Confirm Administered Dose 2.5 meq .ROUTE .STK-MED ONE Stop: 10/06/19 06:13 Last Admin: 10/06/19 08:36 Dose: Not Given Sufentanil Citrate (Sufenta) Confirm Administered Dose 50 mcg .ROUTE .STK-MED ONE Stop: 10/06/19 02:14 Last Admin: 10/06/19 05:49 Dose: Not Given Sufentanil Citrate (Sufenta) Confirm Administered Dose 50 mcg .ROUTE .STK-MED ONE Stop: 10/06/19 06:13 Last Admin: 10/06/19 08:37 Dose: Not Given - Interaction Disposition, : in Room with Family Interaction: Holding Feeding: Bottle Fed Support Person: Significant Other - Recovery Exam Fundal Tone: Firm Fundal Level: At Umbilicus Fundal Placement: Midline Lochia Amount: Small Lochia Color: Rubra/Red Perineum Description: Intact, Minimal Bruising/Swelling Episiotomy/Laceration: Approximated Bladder Status: Voiding Urinary Elimination: Voided - Exam General: Alert, Oriented, Cooperative, No Acute Distress HEENT: Pupils Equal, Pupils Reactive, EOMI, Mucous Membr. Moist/[place] Neck: Supple Lungs: Clear to Auscultation, Normal Respiratory Effort Cardiovascular: Regular Rate, Regular Rhythm, No Murmurs GI/Abdominal Exam: Normal Bowel Sounds, Soft, Non-Tender, No Organomegaly Extremities: Normal Inspection, Normal Range of Motion, Non-Tender, No Pedal Edema Skin: Warm, Dry, Intact Wound/Incisions: Healing Well Neurological: No New Focal Deficit, Normal Gait, Normal Speech, Normal Tone Psy/Mental Status: Alert, Normal Affect, Normal Mood - Problem List Review Problem List Initiated/Reviewed/Updated: Yes - My Orders Last 24 Hours: My Active Orders 10/07/19 12:00 Ferrous Sulfate 325 mg PO TIDMEALS 10/08/19 05:11 CBC WITH AUTO DIFF [HEME] AM HEPATIC FUNCTION PANEL,HFP [CHEM] AM - Assessment Assessment:: PPD # 2 S/P Doing well. - Plan Plan:: Discharge planning for tomorrow.ocial worker to be in Follow-up with Brooke Burton at 6 week check up All questions answered. FeSO4 1 tablet three times a day. Vitamins 1 tablet daily Amoxicillin 500 mg TID po X 10 days.
[2019-10-08] MEDS ORDERED: Amoxicillin 500 MG Cap PO ONE (03:30)
--- NOTE | 2019-10-08 04:35 | DISCH ---
INDICATION FOR ADMISSION: Ms. Adler is a 19-year-old, 2, para 0-0-1-0 female who reported to Labor and Delivery at [facility] in [facility] at 38 and 6/7 weeks gestation which was consistent with a 13 and 5/7 week ultrasound. She was initially admitted because she was having some vaginal bleeding after intercourse with some increasing force and frequency of contractions. On admission, she was noted to be 3 cm dilated, 70% effaced, -2 station, mid position. She had minimal care and previous history of Trichomonas and bacterial vaginosis in , so urine drug screen, GC chlamydia and wet mount were obtained along with a group B strep vaginal culture since that had not been obtained yet in the . Since she was in early labor, we kept her and started some Pitocin augmentation at 39 weeks gestation. She tolerated her labor quite well. Once she got uncomfortable, intrathecal anesthesia was obtained. Also, artificial rupture of membranes occurred with some thin meconium-stained fluid noted. When she got to complete, she started pushing and she had a normal spontaneous vaginal delivery, RUFUS, of a viable male infant over a midline episiotomy. Episiotomy was accomplished because of the deep variable decelerations during 2nd stage labor. There was noted to be a 3- vessel cord tightly around the neck x1. This was delivered and reduced without difficulty. The placenta was then delivered by simple expression intact. The labia, vagina and cervix were inspected and intact. Mother and infant were in good condition. She had delivery of a viable male , weighing 7 pounds 10 ounces, 19-3/4 inches long with score of 7 at one minute, 9 at five minutes. The midline episiotomy was repaired with 2-0 Vicryl suture without difficulty. She recovered. She tolerated the rest of her hospital stay quite well. She was afebrile. Vital signs were stable. She tolerated her diet well and ambulated quite well. She had minimal lochia. She bottle fed her baby and she was discharged to home on day #2. LABORATORY AND DIAGNOSTIC STUDIES: 10/05/2019, WBC 6.5, hemoglobin 12.1, hematocrit 36.1, platelet count 162,000. CMP: Uric acid 7.6, calcium 8.3, AST 117, ALT 183, alkaline phosphatase 236. The rest was normal. Urinalysis had a large bilirubin, rbc's, positive nitrite, 100 of protein, bacteria. She had a protein-creatinine ratio of 0.38. Urine toxicology screen showed methamphetamine/amphetamine positive. Wet mount was negative. Urine culture showed group B strep positive. Vaginal and rectal group B strep cultures were positive. This was found out after delivery. 10/07/2019; WBC 9.5, hemoglobin 9.4, hematocrit 28.7, platelet count 123,000. 10/08/2019, CBC and liver functions pending. DISCHARGE INSTRUCTIONS: 1. Discharged to home. 2. Follow up with Dr. Peralta with infant within the next week. 3. Patient will follow up at [facility] in 6 weeks for care. 4. No douching, tampons, intercourse for 6 weeks. 5. Discharge instructions including activity, followup, medications, diet and wound care were discussed with the patient. She understands these and is willing to comply with these. 6. Ibuprofen 800 mg 1 tablet t.i.d. p.r.n. pain. 7. Ferrous sulfate 1 tablet t.i.d. 8. vitamin 1 tablet daily. 9. Amoxicillin 500 mg t.i.d. for 10 days. DISCHARGE DIAGNOSES: 1. 39-week intrauterine . 2. Early labor. 3. Hepatitis C positive. 4. Acute anemia secondary to blood loss. 5. Group B strep vaginal culture positive. 6. Urinary tract infection group B strep positive. 7. Artificial rupture of membranes. 8. Pitocin augmentation. 9. Normal spontaneous vaginal delivery of a viable male weighing 7 pounds 10 ounces, 19-3/4 inches long with score of 7 at one minute, 9 at five minutes. 10.Minimal care. 11.Methamphetamine, urine drug screen positive. 12.Nicotine abuse. 13.Elevated liver enzymes, AST and ALT. [facility] /[id number]
[2019-10-08 07:23] VITALS: BP 123/62; PULSE 81
[2019-10-08] MEDS: Ferrous Sulfate 325 MG Tab PO SCH ×2 (08:26→11:49)
[2019-10-08] MEDS: Docusate Sodium 100 MG Cap PO PRN (08:26)
[2019-10-08] MEDS: Prenatal Multivitamin with Calcium/Folic Acid/Iron Tab PO SCH (08:26)
[2019-10-08] MEDS: Ibuprofen 800 MG Tab PO PRN (08:26)
[2019-10-08] MEDS ORDERED: Amoxicillin 500 MG Cap PO SCH (09:00)
[2019-10-09 12:42] LABS: C.TRACHOMATIS BY TMA Negative (Negative); N.GONORRHOEAE BY TMA Negative (Negative)
== END 2019-10-08 15:38 | disposition home or self-care (01) | DRG 806 ==
LOC: DL.OBCHECK 14:53 → DL.OB 17:41 → OBSVTOIN 10-06 07:17
PROVIDERS: ADMIT Obstetrics & Gynecology; ATTEND Obstetrics & Gynecology
PROC: 10E0XZZ Delivery of Products of Conception, External Approach (ICD-10-PCS; principal; 2019-10-06)
PROC: 3E0R3BZ Introduction of Anesthetic Agent into Spinal Canal, Percutaneous Approach (ICD-10-PCS; 2019-10-06)
PROC: 10907ZC Drainage of Amniotic Fluid, Therapeutic from Products of Conception, Via Natural or Artificial Opening (ICD-10-PCS; 2019-10-06)
PROC: 0W8NXZZ Division of Female Perineum, External Approach (ICD-10-PCS; 2019-10-06)
DX: O99.824 Streptococcus B carrier state complicating childbirth (principal); D62 Acute posthemorrhagic anemia; Z37.0 Single live birth; O99.333 Smoking (tobacco) complicating pregnancy, third trimester; F17.210 Nicotine dependence, cigarettes, uncomplicated; O77.0 Labor and delivery complicated by meconium in amniotic fluid; O76 Abnormality in fetal heart rate and rhythm complicating labor and delivery; O99.03 Anemia complicating the puerperium; Z79.899 Other long term (current) drug therapy; Z3A.39 39 weeks gestation of pregnancy; O69.1XX0 Labor and delivery complicated by cord around neck, with compression, not applicable or unspecified; O75.3 Other infection during labor; R74.8 Abnormal levels of other serum enzymes
CPT/HCPCS: 01967; 36415; 51702; 59409; 80053; 80076; 80305-QW; 81001; 82570; 83615; 84156; 84550; 85025; 85027; 86850; 86900; 86901; 87077; 87081; 87086; 87088; 87186; 87210; 87491; 87591; 90471; 90707; A9270-GY; J0171; J0696; J2405; J2590; J3010; J7050; J7120

== ENCOUNTER 2020-03-19 20:10 | Emergency (ER) | payer MEDICAID ==
[2020-03-19] MEDS ORDERED: fentaNYL 100 MCG/2 ML SDV IVPUSH ONE (20:16)
[2020-03-19 20:25] VITALS: BP 109/74; PULSE 90
--- NOTE | 2020-03-19 20:47 | CR ---
PROCEDURE INFORMATION: Exam: XR Left Knee Exam date and time: 03/19/2020 8:39 PM Age: 19 years old Clinical indication: Injury or trauma; Fall; Initial encounter; Abrasion; Knee; Left; Additional info: Fall, injury) TECHNIQUE: Imaging protocol: XR Left knee. Views: 3 views. COMPARISON: No relevant prior studies available. FINDINGS: Bones/joints: Normal. Soft tissues: Normal. IMPRESSION: No acute findings.
[2020-03-19 20:56] LABS: ANION GAP 17.8 mEq/L (7-13); CHLORIDE,CL 108 mmol/L (98-107); SODIUM,NA 146 mmol/L (136-145)
--- NOTE | 2020-03-19 21:02 | CR ---
PROCEDURE INFORMATION: Exam: XR Left Ankle Exam date and time: 03/19/2020 8:22 PM Age: 19 years old Clinical indication: Injury or trauma; Fall; Initial encounter; Abrasion; Ankle; Left; Additional info: Fall, injury) TECHNIQUE: Imaging protocol: XR Left ankle. Views: 3 or more views. COMPARISON: No relevant prior studies available. FINDINGS: Bones/joints: The alignment of the joints is anatomic and the joint spaces are maintained. There is no evidence of acute fracture. Soft tissues: There is no soft tissue swelling or calcifications. IMPRESSION: No acute process is identified.
--- NOTE | 2020-03-19 21:02 | CR ---
PROCEDURE INFORMATION: Exam: XR Left Hip with Pelvis when Performed Exam date and time: 03/19/2020 8:25 PM Age: 19 years old Clinical indication: Injury or trauma; Fall; Initial encounter; Abrasion; Left; Pelvic region; Additional info: Fall, injury) TECHNIQUE: Imaging protocol: XR Left hip with pelvis when performed. Views: 2 or 3 views. COMPARISON: No relevant prior studies available. FINDINGS: Bones/joints: Unremarkable. No acute fracture. Soft tissues: Unremarkable. IMPRESSION: No acute findings.
--- NOTE | 2020-03-19 21:16 | CR ---
PROCEDURE INFORMATION: Exam: XR Ribs with PA Chest, 4 Views Exam date and time: 03/19/2020 8:37 PM Age: 19 years old Clinical indication: Injury or trauma; Fall; Initial encounter; Rib area, bilateral; Abrasion; Additional info: Fall, injury TECHNIQUE: Imaging protocol: XR bilateral ribs 4 views with PA chest. COMPARISON: No relevant prior studies available. FINDINGS: Lungs: Unremarkable. No consolidation. Pleural space: Unremarkable. No pleural effusion. No pneumothorax. Heart/Mediastinum: Unremarkable. No cardiomegaly. Bones/joints: The ribs are normal. Unremarkable. IMPRESSION: No acute findings.
--- NOTE | 2020-03-19 21:25 | EDM.PDOC ---
ED HPI GENERAL MEDICAL PROBLEM - General Chief Complaint: Lower Extremity Injury/Pain Stated Complaint: AMBULANCE Time Seen by Provider: 03/19/20 20:24 Source of Information: Reports: Patient, RN, RN Notes Reviewed History Limitations: Reports: Intoxication - History of Present Illness INITIAL COMMENTS - FREE TEXT/NARRATIVE: Patient presents to ER per [place] ambulance service with complaint of left ankle/knee/hip pain as well as left sided rib pain. 20 to 30 minutes prior to arrival patient was chasing her child and fell in a pothole. Patient states pain is severe. Crying upon arrival and hollering. Denies hitting her head or getting knocked out. Patient admits to alcohol use today. Patient denies pain anywhere else other than noted above. Denies taking meds on a regular basis other than as needed inhaler. Admits to history of asthma. Onset: Today, Sudden Left Lower Leg Pain Score (Numeric/FACES): 10 - Related Data Allergies Allergy/AdvReac Type Severity Reaction Status Date / Time No Known Allergies Allergy Verified 03/19/20 20:23 Home Meds: Home Meds Albuterol [Ventolin HFA] 03/19/20 [History] Past Medical History - Past Health History Medical/Surgical History: Denies Medical/Surgical History HEENT History: Reports: None Cardiovascular History: Reports: None Respiratory History: Reports: Asthma Gastrointestinal History: Reports: None Genitourinary History: Reports: STD, UTI, Recurrent Other Genitourinary History: g/c bacterial vaginitis, trichall in mar and april of 2019 [employer] History: Reports: Spontaneous Musculoskeletal History: Reports: None Neurological History: Reports: None Psychiatric History: Reports: Addiction Endocrine/Metabolic History: Reports: None Hematologic History: Reports: Anemia Immunologic History: Reports: None Oncologic (Cancer) History: Reports: None Dermatologic History: Reports: None - Infectious Disease History Infectious Disease History: Reports: Hepatitis C - Past Surgical History Head Surgeries/Procedures: Reports: None Social & Family History - Family History Family Medical History: Noncontributory - Tobacco Use Smoking Status *Q: Current Every Day Smoker Years of Tobacco use: 4 Packs/Tins Daily: 0.2 - Caffeine Use Caffeine Use: Reports: None - Alcohol Use Days Per Week of Alcohol Use: 1 Number of Drinks Per Day: 4 Total Drinks Per Week: 4 - Recreational Drug Use Recreational Drug Use: No - Living Situation & Occupation Living situation: Reports: with Family Occupation: Student Review of Systems - Review of Systems Review Of Systems: Comprehensive ROS is negative, except as noted in HPI. ED EXAM, GENERAL - Physical Exam Exam: See Below Exam Limited By: Intoxication General Appearance: Alert, WD/WN, Moderate Distress Eye Exam: Bilateral Eye: EOMI, Normal Inspection Ears: Normal External Exam, Hearing Grossly Normal Nose: Normal Inspection Throat/Mouth: Normal Inspection, Normal Lips, Normal Teeth, Normal Gums, Normal Oropharynx, Normal Voice, No Airway Compromise Head: Atraumatic, Normocephalic Neck: Normal Inspection, Supple, Non-Tender, Full Range of Motion Respiratory/Chest: No Respiratory Distress, Lungs Clear, Normal Breath Sounds, No Accessory Muscle Use, Other (Left-sided chest wall pain lateral) Cardiovascular: Normal Peripheral Pulses, Regular Rate, Rhythm, No Edema, No Gallop, No JVD, No Murmur, No Rub Peripheral Pulses: 2+: Radial (L), Radial (R) GI/Abdominal: Normal Bowel Sounds, Soft, Non-Tender, No Organomegaly, No Distention, No Abnormal Bruit, No Mass, Pelvis Stable, Other (Left hip/pelvic pain upon palpation) (Female) Exam: Deferred Rectal (Female) Exam: Deferred Back Exam: Normal Inspection, Full Range of Motion Extremities: Leg Pain (Left), Limited Range of Motion (Left knee, left ankle) Neurological: Alert, Oriented, CN II-XII Intact, Normal Cognition, Normal Gait, Normal Reflexes, No Motor/Sensory Deficits Psychiatric: Anxious, Tearful Skin Exam: Warm, Dry, Intact, Normal Color, No Rash Lymphatic: No Adenopathy Course - Vital Signs Last Recorded V/S: Last Vital Signs Temp 98.6 F 03/19/20 20:24 Pulse 90 03/19/20 20:24 Resp 19 03/19/20 20:24 BP 109/74 03/19/20 20:24 Pulse Ox - Orders/Labs/Meds Orders: Active Orders 24 hr Category Date Time Status DRUG SCREEN URINE BIORAD [URCHEM] Stat Lab 03/19/20 21:12 Received HCG QUALITATIVE,URINE [URCHEM] Stat Lab 03/19/20 21:12 Received UA RFX JEREMY AND CULT IF INDIC [URIN] Stat Lab 03/19/20 21:12 Received Labs: Laboratory Tests 03/19/20 03/19/20 Range/Units 20:28 20:28 WBC 6.4 (5.0-10.0) 10^3/uL RBC 5.05 (4.2-5.4) 10^6/uL Hgb 12.6 D (12.0-16.0) g/dL Hct 38.2 (37.0-47.0) % MCV 75.6 L D (80-100) fL MCH 25.0 L (27.0-34.0) pg MCHC 33.0 (33.0-35.0) g/dL Plt Count 301 D (150-450) 10^3/uL Neut % (Auto) 47.0 (42.2-75.2) % Lymph % (Auto) 40.9 (20.5-50.1) % [place] % (Auto) 8.6 H (2-8) % Eos % (Auto) 3.3 H (1.0-3.0) % Baso % (Auto) 0.2 (0.0-1.0) % Sodium 146 H (136-145) mmol/L Potassium 4.8 (3.5-5.1) mmol/L Chloride 108 H (98-107) mmol/L Carbon Dioxide 25 (21-32) mmol/L Anion Gap 17.8 H (7-13) mEq/L BUN 11 (7-18) mg/dL Creatinine 0.78 (0.55-1.02) mg/dL Est Cr Clr Drug Dosing TNP Estimated GFR (MDRD) > 60 BUN/Creatinine Ratio 14.1 (No establ ref range) Glucose 94 (74-99) mg/dL Calcium 9.0 (8.5-10.1) mg/dL Total Bilirubin 0.8 (0.2-1.0) mg/dL AST 33 (15-37) U/L ALT 54 (14-59) U/L Alkaline Phosphatase 108 (46-116) U/L Total Protein 8.3 H (6.4-8.2) g/dL Albumin 3.9 (3.4-5.0) g/dL Globulin 4.4 Albumin/Globulin Ratio 0.9 Ethyl Alcohol 170 (0) mg/dL Meds: Medications Discontinued Medications Generic Name Dose Route Start Last Admin Trade Name Freq PRN Reason Stop Dose Admin Fentanyl 50 mcg 08/26/20 20:16 03/19/20 20:31 Sublimaze IVPUSH 03/19/20 20:17 50 mcg ONETIME ONE Administration Departure - Departure Time of Disposition: 21:45 Disposition: Home, Self-Care 01 Condition: Fair Clinical Impression: Sprain of ankle, Sprain of knee, Sprain of hip - Discharge Information *PRESCRIPTION DRUG MONITORING PROGRAM REVIEWED*: No *COPY OF PRESCRIPTION DRUG MONITORING REPORT IN PATIENT CAMMY: No Instructions: How to Use Cold Therapy, [id number], Ankle Sprain, [id number], Knee Sprain, Adult, [id number], Muscle Strain, [id number], Elastic Bandage and RICE Therapy Forms: ED Department Discharge Additional Instructions: May use Tylenol and/or ibuprofen as directed for pain Elevate and ice the left ankle and knee as much as possible May use Azael wrap to the left knee and left ankle for compression until pain is improved If no improvement in 2 weeks follow-up with your primary care provider Sepsis Event Note (ED) - Evaluation Sepsis Screening Result: No Definite Risk - Focused Exam Vital Signs: Vital Signs Temp Pulse Resp BP 03/19/20 20:24 98.6 F 90 19 109/74 - My Orders Last 24 Hours: My Active Orders 03/19/20 21:12 DRUG SCREEN URINE BIORAD [URCHEM] Stat HCG QUALITATIVE,URINE [URCHEM] Stat UA RFX JEREMY AND CULT IF INDIC [URIN] Stat - Assessment/Plan Last 24 Hours: My Active Orders 03/19/20 21:12 DRUG SCREEN URINE BIORAD [URCHEM] Stat HCG QUALITATIVE,URINE [URCHEM] Stat UA RFX JEREMY AND CULT IF INDIC [URIN] Stat
== END 2020-03-19 21:36 | disposition home or self-care (01) ==
LOC: DL.ED 20:10
DX: S93.402A Sprain of unspecified ligament of left ankle, initial encounter (principal); S83.92XA Sprain of unspecified site of left knee, initial encounter; S73.102A Unspecified sprain of left hip, initial encounter; J45.909 Unspecified asthma, uncomplicated; F17.210 Nicotine dependence, cigarettes, uncomplicated; W17.2XXA Fall into hole, initial encounter
CPT/HCPCS: 36415; 71111; 73502; 73562; 73610; 80053; 80305; 80307; 81001; 81025; 85025; 87086; 87088; 87186; 96374; 99284; J3010

== ENCOUNTER 2021-01-09 15:28 | Inpatient (IN) | payer MEDICAID ==
[2021-01-09] MEDS ORDERED: Penicillin G Potassium 5 MILLUNITS in Sodium Chloride 0.9% 100 ML IV ONE (15:45)
[2021-01-09] MEDS ORDERED: Sodium Chloride 0.9% 10 ML Syringe FLUSH PRN (16:23)
[2021-01-09] MEDS ORDERED: Diphtheria,Pertussis(Acell),Tetanus Vaccine 0.5 ML Syringe IM ONE (16:23)
[2021-01-09] MEDS ORDERED: Carboprost Tromethamine 250 MCG/1 ML Amp IM PRN (16:23)
[2021-01-09] MEDS ORDERED: Docusate Sodium 100 MG Cap PO PRN (16:23)
[2021-01-09] MEDS ORDERED: Acetaminophen 325 MG Tab PO PRN (16:23)
[2021-01-09] MEDS ORDERED: Benzocaine/Menthol 20%-0.5% Spray 78 GM Cannister TOP PRN (16:23)
[2021-01-09] MEDS ORDERED: Oxytocin 10 Units/1 ML SDV IM PRN (16:23)
[2021-01-09] MEDS ORDERED: Misoprostol 400 MCG (4 X 100 MCG TAB) RECTAL PRN (16:23)
[2021-01-09] MEDS ORDERED: Measles, Mumps & Rubella Vaccine 0.5 ML SDV SUBCUT ONE (16:23)
[2021-01-09] MEDS ORDERED: Zolpidem 5 MG Tab PO PRN (16:23)
[2021-01-09] MEDS ORDERED: Simethicone 80 MG Tab.Chew PO PRN (16:23)
[2021-01-09] MEDS ORDERED: Tranexamic Acid 1,000 MG in Sodium Chloride 0.9% 100 ML IV PRN (16:23)
--- NOTE | 2021-01-09 16:39 | PCM.DEL ---
Vacuum Extractor Progress Note - Alternative Labor Strategies Considered Alternative Labor Strategies Considered:: Reports: Yes Strategies Considered:: Reports: Contraction Intensity Adequate, Position Changes Used to Facilitate Rotation & Descent, Empty Bladder, Rest Indications Considered:: Reports: Yes Indications:: Reports: Suspicion of Immediate or Potential Compromise Time Out:: Reports: Yes - Patient Prepared Patient Prepared:: Reports: Yes Informed Consent:: Reports: Verbal Risks: Reports: Yes Risks Include:: Reports: Laceration, Shoulder Dystocia, Maternal Injury, Other Anesthesia/Analgesia Adequate:: Reports: Yes - Probability of Success High Probability of Success:: Reports: Yes Weight Estimated:: Reports: AGA Patient Diabetic:: Reports: No Pelvis Adequate:: Reports: Yes Position:: paige Asynclitic:: Reports: No Station:: vertex seen splitting labia - Application Time Maximum Application Time & Number of Pop-Offs Predetermined:: Reports: Yes Maximum Pressure Maintained in Green Zone (cm Hg):: 0 (see nurses notes) Number of Times Cup Disengaged:: 0 (see nurses notes for other times) Type of Vacuum Used:: Reports: Cup: Soft (kiwi vacuum small cup) Vacuum Extraction: Successful - Exit Strategy Exit strategy available:: Reports: Yes and resuscitation teams readily available:: Reports: Yes - General Info Date of Service: 01/09/21 - Patient Data Lab Results Last 24 Hours: Laboratory Results - last 24 hr 01/09/21 Range/Units 15:45 WBC 10.2 H (5.0-10.0) 10^3/uL RBC 4.58 (4.2-5.4) 10^6/uL Hgb 9.6 L D (12.0-16.0) g/dL Hct 30.9 L (37.0-47.0) % MCV 67.5 L D (80-100) fL MCH 21.0 L (27.0-34.0) pg MCHC 31.1 L (33.0-35.0) g/dL Plt Count 253 (150-450) 10^3/uL Med Orders - Current: Current Medications Acetaminophen (Acetaminophen 325 Mg Tab) 650 mg PO Q6H PRN PRN Reason: Pain/Fever Benzocaine/Menthol (Benzocaine/Menthol 20%-0.5% Jupiter 78 Gm Cannister) 0 gm TOP Q4H PRN PRN Reason: Perineal comfort measures Carboprost Tromethamine (Carboprost Tromethamine 250 Mcg/1 Ml Amp) 250 mcg IM ASDIRECTED PRN PRN Reason: Excessive vaginal bleeding Docusate Sodium (Docusate Sodium 100 Mg Cap) 100 mg PO BID PRN PRN Reason: Constipation Ferrous Sulfate (Ferrous Sulfate 325 Mg Tab) 325 mg PO WITHBREAKFAST KARSON Tranexamic Acid 1,000 mg/ (Sodium Chloride) 110 mls @ 660 mls/hr IV ONETIME PRN PRN Reason: Bleeding Ibuprofen (Ibuprofen 800 Mg Tab) 800 mg PO Q8H PRN PRN Reason: Pain Misoprostol (Misoprostol 400 Mcg (4 X 100 Mcg Tab)) 800 mcg RECTAL ONETIME PRN PRN Reason: Hemorrhage Oxytocin (Oxytocin 10 Units/1 Ml Sdv) 10 unit IM ONETIME PRN PRN Reason: Bleeding Prenat Multivit/Cedar/Iron/Folic Ac ( Multivitamin With Calcium/Folic Acid/Iron Tab) 1 each PO DAILY KARSON Simethicone (Simethicone 80 Mg Tab.Chew) 80 mg PO Q4H PRN PRN Reason: Gas Sodium Chloride (Sodium Chloride 0.9% 10 Ml Syringe) 10 ml FLUSH ASDIRECTED PRN PRN Reason: Keep Vein Open Zolpidem Tartrate (Zolpidem 5 Mg Tab) 5 mg PO BEDTIME PRN PRN Reason: Insomnia Discontinued Medications Diphtheria/Tetanus/Acell Pertussis (Diphtheria,Pertussis(Acell),Tetanus Vaccine 0.5 Ml Syringe) 0.5 ml IM .ONCE ONE Stop: 01/09/21 16:24 Penicillin G Potassium 5 (millunits/ Sodium Chloride) 100 mls @ 200 mls/hr IV ONETIME ONE Stop: 01/09/21 16:14 Measles/Mumps/Rubella Vaccine Live (Measles, Mumps & Rubella Vaccine 0.5 Ml Sdv) 0.5 ml SUBCUT .ONCE ONE Stop: 01/09/21 16:24 - Problem List Review Problem List Initiated/Reviewed/Updated: Yes - My Orders Last 24 Hours: My Active Orders 01/09/21 Breakfast Regular Diet [DIET] 01/09/21 Lunch Regular Diet [DIET] 01/09/21 15:35 CORONAVIRUS COVID-19 DAVID [MOLEC] Routine 01/09/21 15:45 HBSAG SCREEN [REF] Routine HEP C VIRUS AB [REF] Routine HIV-1/2 AG/AB COMBO 4TH GEN [CHEM] Routine RPR (SYPHILIS SERO) W/ RFLX [REF] Routine RUBELLA ANTIBODY, IGG [REF] Routine TYPE AND SCREEN [BBK] Routine 01/09/21 16:22 CHLAMYDIA/GC NUCLEIC ACID AMP [MREF] Urgent CULTURE GROUP B STREP [RM] Routine DRUG SCREEN URINE BIORAD [URCHEM] Urgent UA RFX JEREMY AND CULT IF INDIC [URIN] Urgent 01/09/21 16:23 Patient Status [ADT] Routine Notify Provider Vital Signs OB [RC] ASDIRECTED Up ad Kiki [RC] ASDIRECTED Acetaminophen [TylenoL] 650 mg PO Q6H PRN Benzocaine/Menthol [Dermoplast Pain Relief 20%-0.5% Jupiter] See Dose Instructions TOP Q4H PRN Carboprost Tromethamine [Hemabate DS] 250 mcg IM ASDIRECTED PRN Docusate Sodium [Colace] 100 mg PO BID PRN Ibuprofen [Motrin] 800 mg PO Q8H PRN Oxytocin [Pitocin] 10 unit IM ONETIME PRN Simethicone 80 mg PO Q4H PRN Sodium Chloride 0.9% [Saline Flush] 10 ml FLUSH ASDIRECTED PRN Tranexamic Acid [Cyklokapron] 1,000 mg Sodium Chloride 0.9% [Normal Saline] 100 ml IV ONETIME Zolpidem [Ambien] 5 mg PO BEDTIME PRN miSOPROStoL [Cytotec] 800 mcg RECTAL ONETIME PRN Assess Lochia [WOMSER] Per Unit Routine Assess Uterine Involution [WOMSER] Per Unit Routine Breast Pump [WOMSER] Per Unit Routine Ice Therapy [OM.PC] Per Unit Routine Perineal Care [OM.PC] Per Unit Routine Saline Lock Insert [OM.PC] Urgent Sitz Bath [OM.PC] Per Unit Routine Resuscitation Status Routine 01/09/21 16:24 Vital Signs [RC] PFP 01/09/21 16:25 Vaccines to be Administered [RC] PER UNIT ROUTINE OB 2 Or 3 Tri Sgl 1st Gest [US] Routine 01/09/21 16:26 Patient Status Manage Transfer [TRANSFER] Routine 01/09/21 Dinner Regular Diet [DIET] 01/10/21 06:00 CBC W/O DIFF,HEMOGRAM [HEME] Routine 01/10/21 08:00 Ferrous Sulfate 325 mg PO WITHBREAKFAST 01/10/21 09:00 Vit with Ca/FA/Iron [ Plus Iron] 1 each PO DAILY
[2021-01-09] MEDS ORDERED: Lactated Ringers 1,000 ML IV SCH (18:15)
[2021-01-09] MEDS ORDERED: Oxytocin/Normal Saline 30 UNIT/500 ML BAG IV SCH (18:15)
[2021-01-09] MEDS: Ibuprofen 800 MG Tab PO PRN (22:27)
--- NOTE | 2021-01-09 23:13 | HP ---
PATIENT IDENTIFICATION: Roya Adler is a 20-year-old, G2, P 1-0-0-1, intrauterine at 38 to 39+ weeks based on ultrasound today who presents with vaginal leaking and contractions. HISTORY OF PRESENT ILLNESS: The patient states vaginal leaking started at approximately 6 a.m. on morning of admit, on 01/09/2021. She started having contractions an hour later and presented in the later afternoon on 01/09/2021 complaining of contractions. Came in via ambulance. [place] in the lower abdomen, radiating to the back, coming every 2 minutes, and severe enough she is breathing through them and crying through them. Nothing seems to make them better, it has been getting worse. She does note greenish type fluid leaking from the vaginal area. She also admits to methamphetamine use 3 weeks ago and possibly more recently and THC in the 3rd trimester in the . She has had no care. She is GBS unknown. She had a previous delivery back on 10/06/2019, this was augmented by artificial rupture of membranes augmentation by Pitocin. Records called for, reviewed in regard to this, and supplemented by patient history. This yielded a viable male , weighing 7 pounds 10 ounces with score of 7 and 9, and had a midline episiotomy due to concerns with heart tones. She did have a 13-5/7 week ultrasound during that . During this , she has had no care. Records called for, reviewed as below, and supplemented by patient history. OBSTETRIC HISTORY: As above. ALLERGIES: None. MEDICATIONS: She uses albuterol inhaler, last use was 3 years ago. PAST MEDICAL/PAST SURGICAL HISTORY: Remarkable for asthma, and for surgeries, had lungs drained of fluid when she was a baby. Otherwise, she denies any other hospitalizations other than for her baby. She denies any other surgeries. FAMILY HISTORY: Negative for any anesthesia, bleeding problems, or defects. SOCIAL HISTORY: The patient lives in [place], presents with Lauri Green, father of the baby, and they live together as well as with Lauri's dad. She does admit to smoking 2 to 3 cigarettes per day. Methamphetamine use 3 weeks ago, possibly sooner, and THC recently with marijuana. REVIEW OF SYSTEMS: The patient denies any fever or chills, sweats. Mild cough. No other cold symptoms. Denies any problems with bowel or bladder habits, swelling, numbness, tingling. Otherwise, review of systems reviewed and felt to be contributory as above. OBJECTIVE: Vital Signs: Blood pressure 118/80, heart rate is 124, respiratory rate is between 12 and 20. The patient feels afebrile. Appearance: Female, appears stated age, acting appropriate, nontoxic appearance. Breathing through contractions, but answering questions appropriately in between. HEENT: Head atraumatic. EOMs intact. PERRLA. No scleral icterus. No obvious otorhinorrhea. Mucous membranes moist with poor dentition noted. Neck: No obvious masses or lesions. Lungs: Clear to auscultation bilaterally. No increased work of breathing. Heart: S1, S2. Regular rate and rhythm. Abdomen: Gravid. Riley's indeterminate. Nontender, nondistended. Bowel sounds positive. No other organomegaly, pulsatile masses, or obvious hernias. No rebound, rigidity, or guarding. Monitors are applied. : Initially vaginal exam done by nurse upon admission to the hospital, found her to be 8 cm, vertex suspected. Ultrasound was called in stat, revealed fundal posterior placenta, and I evaluated cervix after that revealing her to be 9 cm. GBS obtained as well as GC-chlamydia. Extremities: No peripheral edema. Deep tendon reflexes 2 to 3 out of 4 bilaterally and symmetric in lower extremities. Psychiatric: Mood and affect congruent. Judgment and insight intact. Skin: Without any cyanosis, clubbing, or jaundice. LABORATORY DATA: Labs that have returned today reveal a white cell count 10.2, hemoglobin 9.6, platelets 253. Otherwise, waiting on all the other. No care labs at this point in time. She was GBS positive on 10/05/2019. Penicillin was started immediately upon admission as soon as possible. heart tones 140s to 150s. Tocometer revealed contractions every 2 minutes. Ultrasound was reviewed, did reveal single intrauterine , vertex presentation by tech report, between 38 to 39+ weeks based on abdominal circumference. Subsequently ultrasound was terminated as the patient had a desire to push, and she was found to be complete. I donned sterile gown and gloves. The patient was put in dorsal lithotomy position. The patient started pushing with contractions, using Nitrox. Please see delivery note for further details. ASSESSMENT AND PLAN: 1. Intrauterine at 38 to 39+ weeks based on ultrasound today. 2. Active labor. 3. Spontaneous rupture of membranes at 6 a.m. with meconium-stained fluid. 4. No care. 5. Admitted methamphetamine use approximately 3 weeks ago and THC during 3rd trimester of . 6. Group B streptococcus unknown with penicillin called for and given as soon as possible. 7. G2, P 1-0-0-1. PLAN: The patient was admitted. No care. Labs were drawn and done and ordered as well a stat ultrasound with results as above, reviewed by my eyes. The patient went on to deliver thereafter. Please see delivery note for further details. Pending are multiple no care labs at time of dictation. The patient is currently stable. [facility] /[id number]
[2021-01-10] MEDS: Ibuprofen 800 MG Tab PO PRN (06:07)
--- NOTE | 2021-01-10 06:43 | PN ---
DATE: 01/10/2021 SUBJECTIVE: day #1, 20-year-old G2, now P2-0-0-2, status post vacuum- assisted vaginal delivery due to bradycardia complicated by a 90-second shoulder dystocia and placental abruption. No lacerations. The patient reports that she has been doing well overnight, ambulating, tolerating regular diet, voiding without difficulties, has not had a bowel movement. She is denying any chest pain, shortness of breath. Reports the bleeding is about like a menstrual cycle. Otherwise, no complaints. Nurses report she has just slept all night long and had no particular concerns or worries overnight and she is doing well today. OBJECTIVE: Vital Signs: Temperature is 98.6, pulse 98, blood pressure 135/89, respiratory rate of 16, O2 saturations 98% on room air. Heart: Regular without murmur. Lungs: Clear to auscultation bilaterally. Abdomen: Soft, nontender. Positive bowel sounds. Fundus is firm and below the umbilicus. Extremities: No edema, erythema, or tenderness noted. LABORATORY DATA: No new labs available at this time. Admission labs show hemoglobin was 9.6, platelets 253. Urine drug screen positive for amphetamine, methamphetamine, and THC. Rapid HIV testing negative and COVID test negative. ASSESSMENT: 1. 2, now para 2-0-0-2. 2. day #1 status post vacuum-assisted vaginal delivery complicated by shoulder dystocia. 3. Group B Streptococcus unknown. 4. No care. 5. Methamphetamine and marijuana abuse. 6. Tobacco smoker. 7. History of preeclampsia in a prior . 8. History of reported positive hepatitis C antibodies. Current testing not available. 9. Anemia of . 10.Blood type O positive. 11.Rubella status pending. PLAN: Continue normal post vaginal delivery cares and anticipate discharge home tomorrow as long as she and the baby both continue to do well. Dr. Peralta will be resuming care on day of discharge. [facility] /[id number]
[2021-01-10] MEDS: Prenatal Multivitamin with Calcium/Folic Acid/Iron Tab PO SCH ×2 (07:50→09:57)
[2021-01-10] MEDS ORDERED: Ferrous Sulfate 325 MG Tab PO SCH (08:00)
--- NOTE | 2021-01-10 09:04 | DISCH ---
ADMISSION DIAGNOSES: 1. 2, para 1-0-0-1. 2. 38 to 39 weeks gestation based on ultrasound today. 3. No care. 4. Active labor. 5. Spontaneous rupture of membranes with meconium-stained fluid. 6. Methamphetamine and marijuana use. 7. Tobacco abuse. 8. Group B Strep status unknown. DISCHARGE DIAGNOSES: 1. 2, now para 2-0-0-2. 2. 38 to 39 weeks gestation based on ultrasound today. 3. No care. 4. Active labor. 5. Spontaneous rupture of membranes with meconium-stained fluid. 6. Methamphetamine and marijuana use. 7. Tobacco abuse. 8. Group B Strep status unknown. 9. Status post vacuum-assisted vaginal delivery due to bradycardia. 10.90-second shoulder dystocia. 11.Placental abruption. BRIEF HISTORY: A 20-year-old female with the above-listed diagnoses, presented to the hospital in active labor with meconium stained fluid. She went on to vacuum-assisted vaginal delivery performed by Dr. Peralta with vacuum assistance due to some bradycardia. She had a 90-second shoulder dystocia which was resolved, and baby did well thereafter. There were no lacerations requiring any repair, and you could see her admission history and physical and delivery notes for additional details. HOSPITAL COURSE: Has been good since delivery. Pain has been well controlled with ibuprofen and Tylenol. She is requesting ibuprofen for her tooth pain more than she is for her actual perineal pain. She is bottle feeding her baby and requesting discharge home this morning at less than 24 hours reporting that she needs to go take care of her grandmother who is at home on hospice and also to see her 1-year-old child whom she misses and does not feel like she can be away from him. She reports bleeding is less than a menstrual cycle. No chest pain. No shortness of breath. No symptoms of preeclampsia. Voiding without difficulties. Has not had a bowel movement, but overall feels that she is doing well and requesting discharge. DISCHARGE CONDITION: Good. Temperature is 98.6, pulse 98, blood pressure 135/89, respiratory rate of 16, O2 saturations 98% on room air. DISCHARGE EXAMINATION: Within normal limits. See progress note from approximately 1 hour earlier and her current exam is unchanged. Her breath smells like still alcohol. PERTINENT LABORATORY DATA: Initial hemoglobin 9.6, platelets 253. Discharge . Urinalysis did show 30 of protein, however, also 40 to 50 wbc's, moderate epithelial cells and mucus. The protein level is falsely elevated. Urine toxicology with methamphetamine, amphetamine, and THC. HIV negative and COVID test negative. Did add a blood alcohol level to her admission labs. DISPOSITION: Home with family. MEDICATIONS: Ibuprofen 800 mg t.i.d. as needed for pain, Tylenol 650 mg t.i.d. as needed for pain, iron 325 mg twice daily, and Colace 100 mg twice daily as needed for constipation. FOLLOWUP: She will need to make a 6-week appointment with provider of choice. Anticipate she will be seen out at [place], however, she may also choose to see Dr. Peralta, her delivering physician. INSTRUCTIONS: Routine post vaginal delivery instructions were given. I spent some additional time discussing late onset preeclampsia specifically, as well as its dangers and that she needs to be assessed right away if she has any symptoms or complaints. The patient was also informed that her baby would need to stay for at least 48 hours and she reports that she understands that and has no concerns about that. [facility] /[id number]
[2021-01-10 10:00] VITALS: BP 108/61; PULSE 96
--- NOTE | 2021-01-12 09:17 | DEL ---
DATE: 01/09/2021 PREOPERATIVE DIAGNOSES: 1. Intrauterine at 38 to 39+ weeks based on ultrasound today. 2. Active labor upon admission. 3. Spontaneous rupture of membranes at 6 a.m. on date of admission with meconium-stained fluid. 4. No care. 5. The patient admitted to methamphetamine use approximately 3 weeks ago and tetrahydrocannabinol in the 3rd trimester of . 6. Group B streptococcus unknown. Penicillin called for and given as soon as possible. 7. 2, para 1-0-0-1. 8. bradycardia with heart tones in the 70s to 80s. POSTOPERATIVE DIAGNOSES: 1. Intrauterine at 38 to 39+ weeks based on ultrasound today, delivered via vacuum-assisted vaginal delivery. 2. Active labor upon admission. 3. Spontaneous rupture of membranes at 6 a.m. on date of admission with meconium-stained fluid. 4. No care. 5. The patient admitted to methamphetamine use approximately 3 weeks ago and tetrahydrocannabinol in the 3rd trimester of . 6. Group B streptococcus unknown. Penicillin called for and given as soon as possible. 7. 2, para 1-0-0-1. 8. bradycardia with heart tones in the 70s to 80s. 9. Ninety-second shoulder dystocia in left occiput anterior presentation, requiring Enedina maneuver and suprapubic pressure. 10.Placental abruption with old blood noted after delivery of head and with delivery of the placenta. 11.Meconium-stained fluid, cord, placenta, and vernix. PROCEDURE PERFORMED: Vacuum-assisted vaginal delivery, 90-second shoulder dystocia requiring Enedina and suprapubic pressure. ANESTHESIA/ANALGESIA: The patient did receive Nitrox in the 1st and 2nd stage of labor. ESTIMATED BLOOD LOSS: 300 mL. FINDINGS: Male, scores 5 and 8, weighing 8 pounds 2 ounces, with old blood noted coming from the vaginal area with delivery of the vertex as well as after delivery of the placenta with abruption suspected. Meconium-stained fluid, cord, placenta, and vernix noted. SUMMARY OF EVENTS: The patient is a 20-year-old G2, P1-0-0-1, intrauterine at 38 to 39+ weeks based on ultrasound done today after presenting with noting at 6 a.m. having spontaneous rupture of membranes consisting of greenish fluid followed by contractions starting at 7 a.m., increasing in frequency and intensity to the point that she was breathing through them and called the ambulance. She presented via ambulance, was initially found to be 8 cm by nurse. Ultrasound stat was called for, did reveal a fundal placenta that was also posterior. Vaginal exam thereafter revealed her to be 9 cm. Ultrasound did date her around 38 to 39+ weeks based on abdominal circumference, and subsequently, ultrasound was terminated as the patient had the urge to push. The patient started pushing, and descent was noted. heart tones were evaluated and noted to be in the 70s to 80s with bradycardia. Subsequently, discussion ensued in regard to using vacuum for a vacuum-assisted vaginal delivery. I discussed with her and her male partner risks, benefits, alternatives, and complications of this. They understood and agreed and wished to proceed. Verbal consent was obtained. Subsequently, with the next episode of pushing, vertex was seen splitting the labia. The Kiwi vacuum with a small cup was applied to the vertex, and with the patient pushing with contraction, vacuum was pumped up to the green and monitoring pressures that was never over the red with pulling, vertex was subsequently delivered. Vacuum was disengaged. RUFUS presentation was noted. Anterior shoulder, there was some difficulty delivering this. Enedina maneuver ensued and despite this still was undelivered, and suprapubic pressure was then used with anterior shoulder delivered with slow descent and then thereafter with posterior shoulder delivered with right hand by right cheek. Rest of the infant delivered without difficulty. Cord was doubly clamped and cut, and infant was brought over to team for resuscitation. Then, approximately 10 mL of cord blood was obtained for labs. Placenta then delivered with gentle cord traction and fundal massage with noted old blood with delivery of the placenta as well as after delivery of the vertex. Placental abruption suspected. Pitocin was started. Fundal massage was done. Perineum, vagina, perirectal areas were examined with only small bilateral periurethral abrasion, nonbleeding, non-repaired after discussion with the patient. No other lacerations noted. Mother and infant are currently stable at the time of dictation. I did discuss with mother the 90-second shoulder dystocia requiring Enedina and suprapubic pressure as well as ramifications on future pregnancies and that care is important for her, and importance of followup and ramifications of not doing so were discussed as well, as well as potential for future deliveries based on this shoulder dystocia. I also did discuss following the child closely. We will be watching movement of the extremities as well as clavicle region for tenderness or crepitus. The patient understands and agrees to the above treatment plan. [facility] /[id number] MTDD
--- NOTE | 2021-01-12 11:38 | US ---
EXAMINATION: OB 2 Or 3 Tri Sgl 1st Gest SEX: Female AGE: 20 years CLINICAL HISTORY: 20-year-old gravid female who has had no (placenta? Presentation?). This patient is 39 weeks 6 days by dates. INTERPRETATION: Enlarged uterus with a single live ( heart rate 153 bpm) intrauterine gestation longitudinal lie; cephalic presentation. Placenta located posteriorly extending up over the fundus (calcifications consistent with maturity). Generally low amniotic fluid volume i.e. no significant pockets fluid identified.
[2021-01-14 07:47] LABS: C.TRACHOMATIS BY TMA Positive (Negative); N.GONORRHOEAE BY TMA Positive (Negative)
== END 2021-01-10 08:45 | disposition home or self-care (01) | DRG 805 ==
LOC: DL.OBCHECK 15:28 → EEVIPCON 16:07 → DL.OB 16:07
PROVIDERS: ADMIT Family Medicine; ATTEND Family Medicine
PROC: 10D07Z6 Extraction of Products of Conception, Vacuum, Via Natural or Artificial Opening (ICD-10-PCS; principal; 2021-01-09)
DX: O66.0 Obstructed labor due to shoulder dystocia (principal); O45.93 Premature separation of placenta, unspecified, third trimester; Z37.0 Single live birth; O99.324 Drug use complicating childbirth; F15.10 Other stimulant abuse, uncomplicated; F12.10 Cannabis abuse, uncomplicated; O99.02 Anemia complicating childbirth; D64.9 Anemia, unspecified; O77.0 Labor and delivery complicated by meconium in amniotic fluid; Z20.822 Contact with and (suspected) exposure to COVID-19; O76 Abnormality in fetal heart rate and rhythm complicating labor and delivery; O99.334 Smoking (tobacco) complicating childbirth; F17.200 Nicotine dependence, unspecified, uncomplicated; Z3A.39 39 weeks gestation of pregnancy
CPT/HCPCS: 36415; 59409; 59414; 76805; 80305-QW; 80307; 81001; 85027; 86592; 86762; 86803; 86850; 86900; 86901; 87081; 87340; 87389; 87491; 87591; 90471; 90715; A9270-GY; J2540; J2590; J7120; U0002

== ENCOUNTER 2022-01-12 01:11 | Emergency (ER) | payer SELFPAY ==
[~2022-01-12 01:11] MED LIST: Sodium Chloride 0.9% 1,000 ML IV SCH
[2022-01-12 01:46] VITALS: BP 118/84; PULSE 71
[2022-01-12 01:49] LABS: ANION GAP 15.2 mEq/L (7-13)
[2022-01-12 01:55] LABS: AMPHETAMINES,URINE POSITIVE (NEGATIVE); BARBITURATES,URINE NEGATIVE (NEGATIVE); BENZODIAZEPINE,URINE NEGATIVE (NEGATIVE); MDMA (ECSTASY), URINE NEGATIVE (NEGATIVE); METHADONE,URINE NEGATIVE (NEGATIVE); METHAMPHETAMINES,URINE POSITIVE (NEGATIVE); OPIATES,URINE NEGATIVE (NEGATIVE); OXYCODONE,URINE NEGATIVE (NEGATIVE); PHENCYCLIDINE,URINE NEGATIVE (NEGATIVE); TCA,URINE NEGATIVE (NEGATIVE)
[2022-01-12] MEDS ORDERED: Naloxone 2 MG/2 ML Syringe IVPUSH ONE (02:06)
[2022-01-12] MEDS ORDERED: Sodium Chloride 0.9% 1,000 ML IV ONE (05:47)
== END 2022-01-12 07:58 | disposition home or self-care (01) ==
LOC: DL.ED 01:11
DX: F10.929 Alcohol use, unspecified with intoxication, unspecified (principal); F15.90 Other stimulant use, unspecified, uncomplicated; E87.6 Hypokalemia; Y90.7 Blood alcohol level of 200-239 mg/100 ml
CPT/HCPCS: 36415; 71045; 80053; 80305; 80307; 81003; 81025; 83735; 85025; 96361; 96374; 99283; 99284; J2310; J7030

== ENCOUNTER 2022-09-18 02:41 | Emergency (ER) | payer MEDICAID ==
[2022-09-18 02:52] VITALS: BP 118/77; PULSE 82
[2022-09-18] MEDS ORDERED: Sodium Chloride 0.9% 10 ML Syringe FLUSH SCH (03:15)
[2022-09-18 03:43] LABS: ANION GAP 14.5 mEq/L (7-13); CHLORIDE,CL 113 mmol/L (98-107); SODIUM,NA 148 mmol/L (136-145)
[2022-09-18 03:46] LABS: ACETAMINOPHEN 0 ug/mL (10-30 (Therapeutic)); ESTIMATED GFR 126 mL/min (>=60)
[2022-09-18] MEDS ORDERED: Sodium Chloride 0.9% 1,000 ML IV ONE (04:21)
[2022-09-18 07:05] LABS: AMPHETAMINES,URINE NEGATIVE (NEGATIVE); BARBITURATES,URINE NEGATIVE (NEGATIVE); BENZODIAZEPINE,URINE NEGATIVE (NEGATIVE); MDMA (ECSTASY), URINE NEGATIVE (NEGATIVE); METHADONE,URINE NEGATIVE (NEGATIVE); METHAMPHETAMINES,URINE POSITIVE (NEGATIVE); OPIATES,URINE NEGATIVE (NEGATIVE); OXYCODONE,URINE NEGATIVE (NEGATIVE); PHENCYCLIDINE,URINE NEGATIVE (NEGATIVE); TCA,URINE NEGATIVE (NEGATIVE)
== END 2022-09-18 07:19 ==
LOC: DL.ED 02:41
DX: R40.4 Transient alteration of awareness (principal); Z53.29 Procedure and treatment not carried out because of patient's decision for other reasons; J45.909 Unspecified asthma, uncomplicated
CPT/HCPCS: 36415; 80053; 80143; 80179; 80305; 80307; 81003; 81025; 83605; 84484; 85025; 93005; 93010; 96360; 99284; 99285; J3490; J7030

== ENCOUNTER 2023-05-15 14:35 | Emergency (ER) | payer MEDICAID ==
[2023-05-15] MEDS ORDERED: Take Home: Cephalexin 500 MG Cap, 6 Cap Pack PO ONE (14:51)
[2023-05-15 15:00] VITALS: BP 98/69; PULSE 70
== END 2023-05-15 15:04 | disposition home or self-care (01) ==
LOC: DL.ED 14:35
DX: S51.812A Laceration without foreign body of left forearm, initial encounter (principal); W26.8XXA Contact with other sharp object(s), not elsewhere classified, initial encounter
CPT/HCPCS: 99282; A9270-GY

== ENCOUNTER 2023-05-28 07:53 | Emergency (ER) | payer MEDICAID ==
[2023-05-28 08:03] VITALS: BP 120/88; PULSE 93
[2023-05-28 08:28] LABS: BASOPHILS PERCENT AUTO 0.2 % (0.0-1.0); EOSINOPHILS PERCENT AUTO 4.7 % (1.0-3.0); HEMATOCRIT 38.4 % (37.0-47.0); HEMOGLOBIN 12.5 g/dL (12.0-16.0); LYMPHOCYTES PERCENT AUTO 44.7 % (20.5-50.1); MEAN CORPUSCULAR HEMOGLOBIN 25.3 pg (27.0-34.0); MEAN CORPUSCULAR HGB CONC 32.6 g/dL (33.0-35.0); MEAN CORPUSCULAR VOLUME 77.7 fL (80-100); MONOCYTES PERCENT AUTO 10.1 % (2-8); NEUTROPHILS PERCENT AUTO 40.3 % (42.2-75.2); PLATELET COUNT,PLT 259 10^3/uL (150-450); RED BLOOD CELL COUNT 4.94 10^6/uL (4.2-5.4); WHITE BLOOD CELL COUNT,WBC 5.2 10^3/uL (5.0-10.0)
[2023-05-28 08:47] LABS: A/G RATIO 0.7; ALBUMIN 3.5 g/dL (3.4-5.0); ANION GAP 10.9 mEq/L (7-13); BILIRUBIN TOTAL 0.5 mg/dL (0.2-1.0); BUN/CREATININE RATIO 10.1 (No establ ref range); CREATININE 0.79 mg/dL (0.55-1.02); EST CRCL DRUG DOSING (CG) 105.91 mL/min; POTASSIUM,K 3.9 mmol/L (3.5-5.1); PROTEIN TOTAL,TP 8.6 g/dL (6.4-8.2)
[2023-05-28] MEDS ORDERED: Naloxone 2 MG/2 ML Syringe IM ONE (09:16)
[2023-05-28 09:40] LABS: APPEARANCE,URINE CLEAR (CLEAR); BILIRUBIN,URINE NEGATIVE (NEGATIVE); COLOR,URINE YELLOW (YELLOW); GLUCOSE,URINE NEGATIVE (NEGATIVE); KETONES,URINE NEGATIVE (NEGATIVE); LEUKOCYTE ESTERASE,URINE TRACE (NEGATIVE); NITRITE,URINE NEGATIVE (NEGATIVE); OCCULT BLOOD,URINE NEGATIVE (NEGATIVE); PROTEIN,URINE NEGATIVE (NEGATIVE); UROBILINOGEN,URINE 0.2 mg/dL (0.2-1.0)
[2023-05-28 09:44] LABS: AMPHETAMINES,URINE POSITIVE (NEGATIVE); BARBITURATES,URINE NEGATIVE (NEGATIVE); BENZODIAZEPINE,URINE NEGATIVE (NEGATIVE); MDMA (ECSTASY), URINE NEGATIVE (NEGATIVE); METHADONE,URINE NEGATIVE (NEGATIVE); METHAMPHETAMINES,URINE POSITIVE (NEGATIVE); OPIATES,URINE NEGATIVE (NEGATIVE); OXYCODONE,URINE NEGATIVE (NEGATIVE); PHENCYCLIDINE,URINE NEGATIVE (NEGATIVE); TCA,URINE NEGATIVE (NEGATIVE)
[2023-05-28 09:47] LABS: AMORPHOUS SEDIMENT,URINE FEW /HPF (NOT SEEN); BACTERIA,URINE MODERATE /HPF (0-FEW/HPF); EPITHELIAL CELLS,URINE FEW /HPF (NOT SEEN); MUCUS,URINE FEW /LPF (NOT SEEN); RBC,URINE 0-5 /HPF (0-5); WBC,URINE 0-5 /HPF (0-5/HPF)
[2023-06-01 15:42] LABS: C.TRACHOMATIS BY TMA Negative (Negative); M GENITALIUM Negative (Negative); M GENITALIUM SOURCE Urine; N.GONORRHOEAE BY TMA Negative (Negative); SOURCE Urine
== END 2023-05-28 11:28 | disposition home or self-care (01) ==
LOC: DL.ED 07:53
DX: F10.929 Alcohol use, unspecified with intoxication, unspecified (principal); F15.90 Other stimulant use, unspecified, uncomplicated; J45.909 Unspecified asthma, uncomplicated; F17.210 Nicotine dependence, cigarettes, uncomplicated; Y90.8 Blood alcohol level of 240 mg/100 ml or more; Y04.0XXA Assault by unarmed brawl or fight, initial encounter
CPT/HCPCS: 36415; 80053; 80305-QW; 80307; 81001; 81025; 85025; 87086; 87491; 87563; 87591; 96372; 99283; 99284; J2310

== ENCOUNTER 2024-01-03 13:38 | Emergency (ER) | payer MEDICAID ==
[2024-01-03 13:58] VITALS: BP 93/82; PULSE 91
== END 2024-01-03 15:24 ==
LOC: DL.ED 13:38
DX: S93.401A Sprain of unspecified ligament of right ankle, initial encounter (principal); F17.200 Nicotine dependence, unspecified, uncomplicated; W01.0XXA Fall on same level from slipping, tripping and stumbling without subsequent striking against object, initial encounter
CPT/HCPCS: 73610-RT; 73630-RT; 99284